=== PATIENT | male | born 1965 | race Two or more races ===

== ENCOUNTER 2017-06-13 20:40 | Inpatient (IN) | payer MEDICARE, MEDICAID ==
[~2017-06-13] VITALS: Ht 177.8 cm; Wt 80.7 kg
--- NOTE | 2017-06-13 21:40 | NUR ---
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 PT C/O BILAT LOWER EXTREMITIES REDNESS/ SWELLING. STATES HIS FEET HURT FROM WALKING ALL DAY. PT AMBULATED TO ER BED, SKIN WARM AND DRY, RR EVEN AND UNLABORED. PT GOWNED,PLACED ON SENIOR ONLINE MARKETING MANAGER. AWAITING ORDERS FROM PROVIDER
[2017-06-13 22:49] LABS: BASOPHILS % (AUTO) 0.5 % (0.0-2.0); EOSINOPHILS # (AUTO) 0.4 /CMM (0.0-0.7); EOSINOPHILS % (AUTO) 5.5 % (0.0-6.0); HEMATOCRIT 41 % (39-51); HEMOGLOBIN 13.6 g/dL (13.5-17.5); LYMPHOCYTES # (AUTO) 1.8 /CMM (0.8-4.8); LYMPHOCYTES % (AUTO) 25.4 % (20.0-44.0); MEAN CORPUSCULAR HEMOGLOBIN 29 PG (26.0-33.0); MEAN CORPUSCULAR HGB CONC 33 g/dl (31.0-36.0); MEAN CORPUSCULAR VOLUME 89 fL (80-96); MONOCYTES # (AUTO) 0.8 /CMM (0.1-1.30); MONOCYTES % (AUTO) 11.6 % (2.0-12.0); NEUTROPHILS # (AUTO) 3.9 /CMM (1.8-8.9); PLATELET COUNT (AUTO) 253 /CMM (150-450); RDW COEFFICIENT OF VARIATION 14.5 (11.5-15.0); RED BLOOD CELL COUNT(AUTO) 4.62 MIL/uL (4.5-6.0); WHITE BLOOD COUNT (AUTO) 6.9 K/uL (4.3-11.0)
[2017-06-13 23:08] LABS: INR 0.9 (0.87-1.13); PROTHROMBIN TIME 9.4 SECS (9.5-12.7)
[2017-06-13 23:11] LABS: TROPONIN I 0.304 ng/mL (0.00-0.056)
[2017-06-13 23:12] LABS: CALCIUM, SERUM 9.1 mg/dL (8.5-10.1)
[2017-06-13 23:23] LABS: ALBUMIN 3.7 g/dL (3.4-5.0); BILIRUBIN,DIRECT 0.1 mg/dL (0.0-0.2); BILIRUBIN,TOTAL 0.5 mg/dL (0.2-1.0)
[2017-06-14] MEDS ORDERED: ASPIRIN 325 MG TABLET PO ONE (01:00)
[2017-06-14] MEDS ORDERED: LORAZEPAM 1 MG TABLET ONE (01:04)
[2017-06-14] MEDS ORDERED: Z GUARD REMEDY 2 OZ OINT TP PRN (01:30)
[2017-06-14] MEDS ORDERED: MAGNESIUM HYDROXIDE 30 ML UDC PO PRN (01:30)
[2017-06-14] MEDS ORDERED: LORAZEPAM 1 MG TABLET PO PRN (01:30)
[2017-06-14] MEDS ORDERED: HYDROCODONE/APAP 5/325MG 1 EACH TABLET PO PRN (01:30)
[2017-06-14] MEDS ORDERED: ACETAMINOPHEN 325 MG TABLET PO PRN (01:30)
[2017-06-14] MEDS ORDERED: MAG HYDROX/AL HYDROX/SIMETH 30 ML UDC PO PRN (01:30)
[2017-06-14] MEDS ORDERED: ONDANSETRON HCL/PF 4 MG/2 ML VIAL IVP PRN (01:30)
[2017-06-14] MEDS ORDERED: ZOLPIDEM TARTRATE 5 MG TABLET PO PRN (01:30)
--- NOTE | 2017-06-14 01:30 | NUR ---
PATIENT CLERICAL ASSISTANT OPENING NOTE PT RECEIVED FROM ER WITH NO ACUTE DISTRESS. A/O X2 WITH SLIGHT CONFUSION/ DEPRESSION. ON TELE WITH SB 60. ABLE TO WALK TO BED WITH SLIGHT PAIN DUE TO BLE CELLULITIS. NO C/O CHEST PAIN. VITALS WNL. ABLE TO MAKE NEEDS KNOWN. COMFORT AND SAFETY MEASURES TO BE ENSURED DURING THE SHIFT. WILL CONTINUE TO MONITOR FOR CHANGES.
--- NOTE | 2017-06-14 01:44 | NUR ---
TRANSPORTED PT TO TELE BED WITHOUT INCIDENT
[2017-06-14] MEDS ORDERED: LORAZEPAM 1 MG TABLET PO ONE (02:30)
--- NOTE | 2017-06-14 03:30 | NUR ---
RN NOTE RECEIVED ORDER FOR ATIVAN 1MG PO X1 NOW. NO ORDER FOR ASA. WILL ENDORSE TO AM NURSE.
[2017-06-14 04:00] VITALS: BP 133/80
[2017-06-14 06:21] LABS: BASOPHILS % (AUTO) 0.5 % (0.0-2.0); EOSINOPHILS # (AUTO) 0.4 /CMM (0.0-0.7); EOSINOPHILS % (AUTO) 6.5 % (0.0-6.0); HEMATOCRIT 36 % (39-51); HEMOGLOBIN 12.2 g/dL (13.5-17.5); LYMPHOCYTES # (AUTO) 1.7 /CMM (0.8-4.8); LYMPHOCYTES % (AUTO) 28.7 % (20.0-44.0); MEAN CORPUSCULAR HEMOGLOBIN 30 PG (26.0-33.0); MEAN CORPUSCULAR HGB CONC 34 g/dl (31.0-36.0); MEAN CORPUSCULAR VOLUME 88 fL (80-96); MONOCYTES # (AUTO) 0.6 /CMM (0.1-1.30); NEUTROPHILS # (AUTO) 3.1 /CMM (1.8-8.9); NEUTROPHILS % (AUTO) 53.3 % (43.0-81.0); PLATELET COUNT (AUTO) 214 /CMM (150-450); RDW COEFFICIENT OF VARIATION 14.2 (11.5-15.0); WHITE BLOOD COUNT (AUTO) 5.8 K/uL (4.3-11.0)
[2017-06-14 06:54] LABS: CALCIUM, SERUM 8.5 mg/dL (8.5-10.1); CREATININE 0.9 mg/dL (0.6-1.3); MAGNESIUM 2.1 mg/dL (1.8-2.4); PHOSPHORUS 4.1 mg/dL (2.5-4.9); POTASSIUM 3.8 mmol/L (3.5-5.1)
--- NOTE | 2017-06-14 06:55 | NUR ---
TITLE I TEACHER CLOSING NOTE PT REMAINS IN NO ACUTE DISTRESS AT THIS TIME, CURRENTLY SLEEPING. ON TELE WITH SR. 20G RAC CLEAN DRY AND INTACT. ALL DUE MEDICATIONS WERE GIVEN AND TOLERATED WELL. COMFORT AND SAFETY MEASURES WERE ENSURED DURING THE SHIFT. WILL ENDORSE CARE TO AM NURSE.
[2017-06-14 08:00] VITALS: BP 128/87
[2017-06-14] MEDS ORDERED: REGADENOSON 0.4 MG/5 ML DISP.SYRIN IVP ONE (08:00)
--- NOTE | 2017-06-14 08:05 | NUR ---
MS RN RECEIVED PT ON BED, STILL SLEEPING, NO DISTRESS NOTED, MONITOR HAS BEEN OFF, DOES NOT WANT TO BE BOTHER,WILL MONITOR PATIENT.
[2017-06-14 08:32] LABS: THYROID STIMULATING HORMONE 1.672 uIU/mL (0.358-3.74)
--- NOTE | 2017-06-14 10:00 | NUR ---
MS RN ECHO DONE, NPO AT THIS TIME FOR STRESS TEST.
[2017-06-14] MEDS ORDERED: GABA-534 PO (11:16)
[2017-06-14] MEDS ORDERED: ASCO500T9 PO (11:16)
[2017-06-14] MEDS ORDERED: BUPR100T5 PO (11:16)
[2017-06-14] MEDS ORDERED: OMEP20CA10 PO (11:16)
[2017-06-14] MEDS ORDERED: OMEG100023 PO (11:16)
[2017-06-14] MEDS ORDERED: MULT1TAB73 PO (11:16)
--- NOTE | 2017-06-14 11:30 | NUR ---
MS RN WENT DOWN FOR STRESS TEST, CALLED [employer] FOR DIET TO BE DELIVERED.
[2017-06-14 12:00] VITALS: BP 121/84
--- NOTE | 2017-06-14 12:10 | NUR ---
Social service consult requested by ONDINA Hooper for homelessness. Pt. is a 51 year old male who was admitted to [facility] for NStemi. Pt. is alert and oriented x4. Pt. appears somewhat anxious, laughs at times, cooperative and has good eye contact. Pt's thought process seems goal oriented. Pt. informed SW that he would like for her to call his friend Alba Red on his behalf and request the phone number for the [employer] in [place]. BROCK informed pt, she can try to find the number online for him, however pt. insisted requesting for SW to contact his friend. SW contacted Alba and left her a voicemail message requesting a call back with contact information to [employer] in [place]. Pt. used to attend the [facility] Partial Hospitalization Program in 2009. Pt. has a history of Bipolar disorder and Major Depression. Pt. has had several psychiatric hospitalizations in the past with the most recent one at [facility]. Pt. use to live in [place] with his mother, however after his mother , pt. was evicted from the apartment and has been homeless for the past. Pt. doesn't give an accurate information regarding how long he has been homeless. When asked, pt. states a week or 2 months. Pt. currently denies suicidal and homicidal ideations and visual/auditory hallucinations at this time. Pt. states he used to use speed but has not done it in a while. Pt. is a smoker. SW to follow up with pt. tomorrow regarding his discharge plan.
--- NOTE | 2017-06-14 12:55 | NUR ---
ms rn came back from stress test, will give lunch and meds after.
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
[2017-06-14 16:00] VITALS: BP 128/81
[2017-06-14] MEDS: ATORVASTATIN 10 MG TABLET PO SCH (16:14)
[2017-06-14] MEDS: ASPIRIN 81 MG TAB.CHEW PO SCH (16:15)
[2017-06-14] MEDS: CARVEDILOL 3.125 MG TABLET PO SCH ×2 (16:15→20:52)
--- NOTE | 2017-06-14 16:30 | NUR ---
MS RN WAS ABLE TO TALKED W/ DR. MADSEN, PROMISED TO RECONCILE PATIENT'S HOME MEDS.
--- NOTE | 2017-06-14 18:04 | NUR ---
MS RN PATIENT ON BED, NO DISTRESS NOTED, ALWAYS ON THE PHONE, REFUSED TELEMETRY,ALL NEEDS ATTENDED.
[2017-06-14 20:00] VITALS: BP 128/73
--- NOTE | 2017-06-14 20:00 | NUR ---
MS/RN OPENING NOTES PATIENT AWAKE, ALERT X3, ABLE TO AMBULATE AND PROVIDED INSTRUCTION TO INFORM NURSE FOR ANY CONCERNS AND REPORT IF HE NEEDS TO GO OUT IN THE ROOM OR NEED ANY ASSISTANCE. PATIENT COOPERATIVE AND PROVIDED HOME MED GABAPENTIN TO GIVE TO PHARMACY TO KEEP. AGREED TO HAVE GABAPENTIN FOR KATELYN AM AND REQUEST TO HAVE SLEEPING PILL AT BED TIME. PROVIDE FLUIDS AND SNACKS. WILL CONTINUE TO MONITOR. NO PAIN REPORTED.
--- NOTE | 2017-06-14 23:05 | NUR ---
ms/rn notes DR. vidal was informed regarding home medication of patient Gabapentin 300mg po to take 2 caps at bed time and order to continue.
[2017-06-14] MEDS ORDERED: GABAPENTIN 300 MG CAPSULE ONE ×2 (23:26→23:29)
[2017-06-14] MEDS ORDERED: GABAPENTIN 300 MG CAPSULE PO SCH ×2 (23:30)
[2017-06-15] VITALS: BP 128/73
[2017-06-15 04:00] VITALS: BP 128/73
--- NOTE | 2017-06-15 05:10 | NUR ---
MS/RN NOTES PATIENT REQUIRING MONITORING AT ALL TIMES, PROVIDED INSTRUCTIONS FOR SAFETY TO KEEP PETROLEUM BLENDING PLANT OPERATOR AND PERSONAL SCISSORS AWAY FROM BEDSIDE. REINFORCE AND MONITORED
--- NOTE | 2017-06-15 05:55 | NUR ---
MS/RN NOTES PATIENT ABLE TO COOPERATE AND HAD TELE MONITOR ON W/ READING AT SR 80'S.
--- NOTE | 2017-06-15 06:33 | NUR ---
326-2 TELE/RN NOTES PATIENT REFUSE TO HAVE TELE , AMBULATES AND INDEPENDENT W/ ADLS REQUIRE SUPERVISION DUE FOR SAFETY. TOLERATED MEDS, SLEEP FEW HOURS. WILL ENDORSE TO AM RN FOR SIMONE.
[2017-06-15 06:53] LABS: BASOPHILS % (AUTO) 0.3 % (0.0-2.0); EOSINOPHILS # (AUTO) 0.4 /CMM (0.0-0.7); EOSINOPHILS % (AUTO) 5.5 % (0.0-6.0); HEMATOCRIT 40 % (39-51); HEMOGLOBIN 13.2 g/dL (13.5-17.5); LYMPHOCYTES # (AUTO) 1.7 /CMM (0.8-4.8); LYMPHOCYTES % (AUTO) 24.4 % (20.0-44.0); MEAN CORPUSCULAR HEMOGLOBIN 30 PG (26.0-33.0); MEAN CORPUSCULAR HGB CONC 33 g/dl (31.0-36.0); MEAN CORPUSCULAR VOLUME 90 fL (80-96); MONOCYTES # (AUTO) 0.7 /CMM (0.1-1.30); MONOCYTES % (AUTO) 9.9 % (2.0-12.0); NEUTROPHILS # (AUTO) 4.1 /CMM (1.8-8.9); NEUTROPHILS % (AUTO) 59.9 % (43.0-81.0); PLATELET COUNT (AUTO) 242 /CMM (150-450); RDW COEFFICIENT OF VARIATION 14.1 (11.5-15.0); RED BLOOD CELL COUNT(AUTO) 4.39 MIL/uL (4.5-6.0); WHITE BLOOD COUNT (AUTO) 6.8 K/uL (4.3-11.0)
[2017-06-15 07:18] LABS: BILIRUBIN,TOTAL 0.3 mg/dL (0.2-1.0); CALCIUM, SERUM 8.7 mg/dL (8.5-10.1); CREATININE 0.8 mg/dL (0.6-1.3); MAGNESIUM 2.2 mg/dL (1.8-2.4); PHOSPHORUS 2.9 mg/dL (2.5-4.9)
[2017-06-15 07:19] LABS: TROPONIN I 0.046 ng/mL (0.00-0.056)
--- NOTE | 2017-06-15 07:40 | NUR ---
MS RN NOTE RECEIVED SBAR REPORT AT THE BEDSIDE. PATIENT IS ALERT, ORIENTED X 4, AWAKE. PATIENT IS TRANSFERRED TO MED/SURG FROM [facility]. PATIENT IS WEARING STREET CLOTHES AND REFUSES TO WEAR A HOSPITAL GOWN. PATIENT IN BED, SPEAKING ON THE PHONE. BED IS LOCKED, IN LOWEST POSITION, SIDE RAILS UP X2. PATIENT DENIED PAIN/ DISCOMFORT AT THIS TIME. TROPONIN LEVEL TRENDING DOWN (0.046 CURRENTLY). ALL NEEDS ARE ATTENDED TO. ALL BELONGINGS WITHIN REACH. CALL LIGHT WITHIN REACH. PATIENT IS EDUCATED TO CALL FOR ASSISTANCE USING THE CALL LIGHT AND VERBALIZED UNDERSTANDING OF THE TEACHING. PER [facility] SHIFT NURSE REPORT PATIENT HAS A TENDENCY TO GO OUT OF THE UNIT WITHOUT NOTIFYING THE NURSE TO SMOKE CIGARETTES DOWNSTAIRS. PATIENT EDUCATED NOT TO LEAVE THE UNIT, TO REFER TO THE NURSE FOR ANY CONCERNS/NEEDS. NICOTINE PATCHES OFFERED AND REFUSED. RN EDUCATED THE PATIENT ON SMOKING HAZARDS. WILL CONTINUE TO ASSESS MONITOR THROUGHOUT THE SHIFT.
[2017-06-15 08:00] VITALS: BP_SYST 128; BP_DIAS 80; BP_DIAS 86
[2017-06-15] MEDS: ASPIRIN 81 MG TAB.CHEW PO SCH (09:02)
[2017-06-15] MEDS: ATORVASTATIN 10 MG TABLET PO SCH (09:02)
[2017-06-15 09:03] VITALS: BP 128/80
[2017-06-15] MEDS: CARVEDILOL 3.125 MG TABLET PO SCH (09:03)
[2017-06-15] MEDS ORDERED: GABAPENTIN 100 MG CAPSULE PO SCH (11:00)
--- NOTE | 2017-06-15 11:30 | NUR ---
MS RN NOTE PATIENT IS VERY AGITATED. SCREAMING AT THE MONKEY KEEPER. CRISIS INTERVENTION INITIATED.
--- NOTE | 2017-06-15 11:40 | NUR ---
MS RN NOTE DR MADSEN AT THE BEDSIDE. PER DR MADSEN ORDER WELLBUTRIN SR 100MG ONCE NOW.
--- NOTE | 2017-06-15 11:50 | NUR ---
MS RN NOTE PATIENT WAS TALKING ON THE PHONE AND STATED HE WILL TAKE HIS MEDICATIONS AFTER HE IS DONE TALKING. WILL RETURN TO ADMINISTER MEDICATIONS LATER
[2017-06-15] MEDS ORDERED: buPROPion SR 100 MG TABLET.ER PO ONE (12:00)
--- NOTE | 2017-06-15 12:11 | NUR ---
BROCK met with pt. bedside with immigration case manager to discuss discharge planning. Pt. informed SW that he wants to go to a sober living and not to a board and care. BROCK called [facility] located at [address] [place] [address] in [place] and spoke to Jeovany, who informed SW they do have a male bed available for $940/ month, however since pt. can only afford $940 a month, he is willing to reduce the rent to $ 926/ month which is the SSDI amount pt. receives per month. SW gave pt. list of sober livings and gave informed him that he is accepted at [facility] in [place]. Pt. declined stating " I do not want to go there." Pt. became agitated and his behaviors escalated again. SW attempted to calm pt. Security had to be called for safety concerns. SW to offer pt. bus tokens upon discharge and address to sober living incase he changes his mind. BROCK contacted pt's therapist Theodore Retana at [facility] x [phone] and left her a voicemail message requesting a call back. BROCK also spoke with pt's immigration case manager Mariajose Belcher at [facility] x [phone] who informed SW that she had spoken with the pt. yesterday and gave him a list of sober livings and that pt. declined all of them. BROCK also informed Mariajose that she found an accepting sober living for pt. in [place], however pt. declined. BROCK also gave pt. list of sober livings. Mariajose informed BROCK that she gave him another list of sober livings today. SW to inform Mariajose when pt. is going to be discharged later this afternoon. BROCK contacted pt's sister Jesenia and spoke to her Gal and informed him that pt. was seen by psychiatrist Dr. Estes and was found not eligible for a 5150 hold. Pt. will be discharged today. Gal was not very happy regarding pt. not being admitted into a psychiatric unit. BROCK encouraged him to speak with pt's therapist Theodore Retana at [facility] for possible conserving patient. BROCK informed Gal that SW offered sober living placement to pt. however, he declined. BROCK transferred call to ONDINA Hooper since Gal wanting update on pt's medical condition. SW to update family once pt. leaves the hospital.
[2017-06-15] MEDS ORDERED: RIVA10TA PO (13:02)
--- NOTE | 2017-06-15 13:45 | NUR ---
MS RN NOTE PATIENT IS AGITATED, PACING AROUND THE ROOM. PATIENT STATED "I AM NOT GOING TO GO TO ANY OF THE PLACES THAT THE HAIRSPRING STUDDER FOUND".
--- NOTE | 2017-06-15 13:55 | NUR ---
MS RN NOTE PATIENT USED THE CALL LIGHT IN THE BATHROOM. RN RESPONDED TO THE CALL. PATIENT WAS FOUND URINATING ON THE FLOOR. PATIENT STATED HE DID NOT NEED ANY ASSISTANCE. RN ASKED WHY WAS THE PATIENT URINATION ON THE FLOOR. PATIENT STATED "JUST BECAUSE".
--- NOTE | 2017-06-15 14:05 | NUR ---
MS RN NOTE AUTOMOBILE DAMAGE APPRAISER RENNY AT THE BEDSIDE. PATIENT REFUSED SEVERAL OPTIONS FOR PLACEMENT BEING OFFERED BY THE AUTOMOBILE DAMAGE APPRAISER.
--- NOTE | 2017-06-15 15:01 | NUR ---
MS MICROELECTRONICS TECHNICIAN NOTE PATIENT LEFT THE UNIT ACCOMPANIED BY THE MICHELLE CHRISTY. DISCHARGE INSTRUCTIONS PROVIDED TO PATIENT./ DISCHARGE ORDER FOR XARELTO SENT TO THE PHARMACY AND PATIENT IS NOTIFIED/PROVIDED WITH ADDRESS/CONTACT INFORMATION OF THE PHARMACY. PATIENT REFUSED DISCHARGE PICTURES TO BE TAKEN. IV CATHETER REMOVED WITH THE CATHETER TIP INTACT. OCCLUSIVE DRESSING APPLIED. PATIENT LEFT THE UNIT IS A STABLE CONDITION. VS WNL.
--- NOTE | 2017-06-15 15:04 | NUR ---
BROCK alongside with [facility] security officers gave pt. 3 bus tokens and list of homeless resources since pt. declined going to sober living resources that were offered to him by BROCK and his bottle caser from [facility]. Pt. accepted the bus tokens and homeless resources that included homeless shelters, Food resources, mental health services and medical centers and health clinics. Pt. was asking for money, however BROCK informed pt. the hospital policy is that no monetary amount is allowed to give to patients. Pt. was escorted out of the hospital by [facility] since pt. has been medically cleared for discharge. BROCK contacted pt's sister Jesenia and left her a voicemail message informing her that pt. has been discharged from [facility] and pt. refused all resources for sober living that were offered to him.
[2017-06-15] MEDS ORDERED: RIVAROXABAN 10 MG TABLET PO SCH (17:00)
== END 2017-06-15 15:04 | disposition home or self-care (01) | DRG 281 ==
LOC: ER 20:40 → TELE 06-14 00:48 → MED 06-15 08:44
PROVIDERS: ADMIT Family Medicine; ATTEND Family Medicine
DX: I21.4 Non-ST elevation (NSTEMI) myocardial infarction (principal); F31.81 Bipolar II disorder; G62.9 Polyneuropathy, unspecified; E78.5 Hyperlipidemia, unspecified; Z59.0 Homelessness; F17.210 Nicotine dependence, cigarettes, uncomplicated; F19.90 Other psychoactive substance use, unspecified, uncomplicated; I87.8 Other specified disorders of veins; F42.9 Obsessive-compulsive disorder, unspecified
CPT/HCPCS: 36415; 71010-TC; 80048-TC; 80053-TC; 80061-TC; 80076-TC; 80305; 82306; 82728-TC; 83540-TC; 83735-TC; 83880; 84100-TC; 84439-TC; 84443-TC; 84484-TC; 85025-TC; 85730-TC; 87081-TC; 93307-TC; 93970-TC; A4606; A9502; J2785; Z7610

== ENCOUNTER 2017-07-31 13:25 | Inpatient (IN) | payer MEDICARE, MEDICAID ==
[~2017-07-31] VITALS: Ht 182.9 cm; Wt 69.9 kg
[~2017-07-31 13:25] MED LIST: ASCO500T9 PO; BUPR100T5 PO; GABA-534 PO; MULT1TAB73 PO; OMEG-166 PO; OMEP20CA10 PO; RIVA10TA PO
--- NOTE | 2017-07-31 13:53 | NUR ---
A/OX3, AMBULATOPRY TO ED BED 03, PT CAME TO ER W C/O SI WITH PLAN TO RUN INTO TRAFFIC, DENIES HI. VSS NAD RR EVEN AND UNLABORED. PENDING ER MD EVALUATION
[2017-07-31 15:52] LABS: BASOPHILS # (AUTO) 0.1 /CMM (0.0-0.2); EOSINOPHILS # (AUTO) 0.1 /CMM (0.0-0.7); EOSINOPHILS % (AUTO) 1.2 % (0.0-6.0); HEMATOCRIT 42 % (39-51); HEMOGLOBIN 14.2 g/dL (13.5-17.5); LYMPHOCYTES # (AUTO) 2.4 /CMM (0.8-4.8); LYMPHOCYTES % (AUTO) 26.7 % (20.0-44.0); MEAN CORPUSCULAR HEMOGLOBIN 29 PG (26.0-33.0); MEAN CORPUSCULAR HGB CONC 34 g/dl (31.0-36.0); MEAN CORPUSCULAR VOLUME 88 fL (80-96); MONOCYTES # (AUTO) 0.5 /CMM (0.1-1.30); MONOCYTES % (AUTO) 5.8 % (2.0-12.0); NEUTROPHILS # (AUTO) 5.9 /CMM (1.8-8.9); NEUTROPHILS % (AUTO) 65.3 % (43.0-81.0); PLATELET COUNT (AUTO) 220 /CMM (150-450); RDW COEFFICIENT OF VARIATION 13.3 (11.5-15.0); RED BLOOD CELL COUNT(AUTO) 4.82 MIL/uL (4.5-6.0)
[2017-07-31 16:01] LABS: CALCIUM, SERUM 8.9 mg/dL (8.5-10.1); CARBON DIOXIDE 31 mmol/L (21-32); CHLORIDE 107 mmol/L (98-107); GLUCOSE 96 mg/dL (74-106); POTASSIUM 3.9 mmol/L (3.5-5.1); SODIUM SERUM 144 mmol/L (136-145); UREA NITROGEN, BLOOD 11 mg/dL (7-18)
[2017-07-31 16:07] LABS: ACETAMINOPHEN 0 ug/ml (10-30); ALANINE AMINOTRANSFERASE 16 U/L (12-78); ALBUMIN 3.6 g/dL (3.4-5.0); ALCOHOL, BLOOD < 3 mg/dL (0-0); ALKALINE PHOSPHATASE 68 U/L (46-116); ASPARTATE AMINOTRANSFERASE 13 U/L (15-37); BILIRUBIN,TOTAL 0.2 mg/dL (0.2-1.0); TOTAL PROTEIN, SERUM 6.6 g/dL (6.4-8.2)
[2017-07-31 16:09] LABS: SALICYLATE 2.4 mg/dL (2.8-20.0)
[2017-07-31 16:10] LABS: APPEARANCE,URINE Clear (CLEAR); BILIRUBIN,URINE Negative (NEGATIVE); BLOOD, URINE Negative Ery/uL (NEGATIVE); COLOR,URINE Yellow (YELLOW); KETONES,URINE Negative (NEGATIVE); LEUKOCYTE ESTERASE ,URINE Negative (NEGATIVE); NITRITE, URINE Negative (NEGATIVE); PH,URINE 7.5 (5.0-8.0); PROTEIN,URINE Negative (NEGATIVE); UGLUCOSE Negative (NEGATIVE); UROBILINOGEN,URINE 0.2 EU/dL (0.2)
--- NOTE | 2017-07-31 17:22 | NUR ---
CALLED [facility] FOR PSYCH EVAL ETA 1 HOUR
--- NOTE | 2017-07-31 18:11 | NUR ---
[facility] AT BEDSIDE FOR EVAL
--- NOTE | 2017-07-31 18:45 | NUR ---
GAVE REPORT TO DARRIN MADSEN ADMITING. PSYCHMD DR TONEY. PSYCHIATRIC DISORDER DX
[2017-07-31] MEDS ORDERED: MAGNESIUM HYDROXIDE 30 ML UDC PO PRN (20:30)
[2017-07-31] MEDS ORDERED: MAG HYDROX/AL HYDROX/SIMETH 30 ML UDC PO PRN (20:30)
[2017-07-31 20:40] VITALS: BP 134/84
--- NOTE | 2017-07-31 21:00 | NUR ---
GPS PROBATION MANAGER NOTES: ADMITTED A 52YO MALE FROM EMERGENCY ROOM ON 5150 HOLD FOR DANGER TO SELF, WITH COMPLAINS OF DEPRESSION AND SUICIDAL IDEATION WITH A PLAN TO JUMP INTO TRAFFIC. PER HOLD THE PATIENT IS FEELING DEPRESSED, NON COMPLIANT WITH MEDICATION, PATIENT WAS PRESCRIBED LATUDA BUT NEVER STARTED THE MEDICATION. USHERED PATIENT TO BED. UPON FACE TO FACE ASSESSMENT, PATIENT PRESENTS ALERT AND ORIENTED X2-3. APPEARS QUIET, SAD, TEARFUL AND DEPRESSED. PATIENT ONLY TALKS AND INTERACTS WHEN ENGAGED. REALITY ORIENTATION DONE. BELONGINGS AND CONTRABAND CHECKED. SKIN AND BODY ASSESSMENT DONE. PATIENT HAS NO OPEN SKIN ISSUES OR WOUND THIS TIME. ORIENTATION TO UNIT, STAFF, CARE PLAN AND DOCTORS DONE. PATIENT WILL BE UNDER THE CARE OF DR. TONEY AND [facility] OF DOCTORS. PATIENT IS AMBULATORY. ABLE TO MAKE NEEDS KNOW. HE DENIES ANY HALLUCINATION THIS TIME. HE IS DENYING ANY THOUGHTS OR PLANS OF SELF HARM THIS TIME. HE IS WILLING TO CONTRACT FOR SAFETY. Q15 MIN CHECK INITIATED.MRSA TO BE DONE IN THE MORNING. SAFETY AND FALL PRECAUTIONS OBSERVED. ENVIRONMENTAL SAFETY CHECK DONE. WILL MONITOR PATIENT FOR MOOD, SAFETY IN BEHAVIOR. WILL ENDORSE PATIENT TO DAY SHIFT NURSE.
[2017-07-31] MEDS: TEMAZEPAM 7.5 MG CAPSULE PO PRN (22:11)
[2017-07-31] MEDS ORDERED: LURA40TA PO (22:49)
[2017-07-31] MEDS ORDERED: OMEG-72 PO (22:49)
[2017-07-31] MEDS ORDERED: BUPR75TA8 PO (22:49)
[2017-08-01] MEDS: clonazePAM 0.5 MG TABLET PO PRN ×2 (03:51→13:09)
[2017-08-01 08:00] VITALS: BP 121/69
[2017-08-01 08:17] LABS: CHOLESTEROL 207 mg/dL (<200); HDL CHOLESTEROL 60 mg/dL (40-60); LDL 135 mg/dL (0-99); TRIGLYCERIDES 77 mg/dL (30-150)
[2017-08-01] MEDS ORDERED: OMEGA ACID ETHYL ESTERS PO SCH (13:30)
[2017-08-01] MEDS ORDERED: BUPROPION XL 150 MG TAB.ER.24 PO SCH (15:30)
[2017-08-01 16:09] VITALS: BP 128/79
[2017-08-01] MEDS ORDERED: QUETIAPINE FUMARATE 25 MG TABLET PO SCH (17:00)
[2017-08-01 19:54] VITALS: BP 133/72
[2017-08-01] MEDS: TEMAZEPAM 7.5 MG CAPSULE PO PRN (23:02)
--- NOTE | 2017-08-02 06:26 | NUR ---
GPS RN NOTES PT. COMFORTABLY RESTING AT THIS TIME, NO ACUTE DISTRESS NOTED, DENIES SI /HI AT THIS TIME PT. CALM COOPERATIVE,ENDORSE TO NEXT SHIFT FOR CONTINUTY OF CARE .
[2017-08-02 08:00] VITALS: BP 119/63
[2017-08-02] MEDS: GABAPENTIN 300 MG CAPSULE PO SCH (09:13)
[2017-08-02] MEDS: PANTOPRAZOLE 40 MG TABLET.DR PO SCH (09:13)
[2017-08-02] MEDS: ASCORBIC ACID 500 MG TABLET PO SCH (09:13)
[2017-08-02] MEDS: ACETAMINOPHEN 325 MG TABLET PO PRN (12:12)
[2017-08-02] MEDS: clonazePAM 0.5 MG TABLET PO PRN (15:15)
--- NOTE | 2017-08-02 15:16 | NUR ---
GPS RN NOTE: PATIENT FEELING ANXIOUS KLONOPIN 0.5 MG PO PRN GIVE PER ORDER WILL CONTINUE MONITORING
[2017-08-02 16:00] VITALS: BP 121/64
[2017-08-02] MEDS: BUPROPION XL 150 MG TAB.ER.24 PO SCH (17:51)
[2017-08-02 20:00] VITALS: BP 110/60
[2017-08-02] MEDS: OLANZAPINE 5 MG TABLET PO SCH (21:25)
[2017-08-03] MEDS: ASCORBIC ACID 500 MG TABLET PO SCH (08:18)
[2017-08-03] MEDS: GABAPENTIN 300 MG CAPSULE PO SCH (08:18)
[2017-08-03] MEDS: PANTOPRAZOLE 40 MG TABLET.DR PO SCH (08:18)
[2017-08-03] MEDS: BUPROPION XL 150 MG TAB.ER.24 PO SCH (08:18)
[2017-08-03 08:31] VITALS: BP 113/56
--- NOTE | 2017-08-03 08:42 | NUR ---
Initial Discharge Note Patient currently lives in sober living, [address] [place] [address]. Patient does not wish to continue there. If possible, patient would like placement at a SNF before transitioning into a board and care. Patient states that he would like SW to call his case finishing machine adjuster, Lisa [phone] to check if his Section 8 voucher might be affected by placement in a SNF. SW to follow up. BROCK contacted pt's sister, Jesenia Arreaga [phone], who was in a agreement with patient's plan. SW to consult with MD and form a safe and proper discharge.
--- NOTE | 2017-08-03 12:18 | NUR ---
Discharge Planning: SW called pt's case management director, Lisa Belcher [phone] and left a voicemail for her regarding the section 8 voucher. SW provided her direct contact information.
--- NOTE | 2017-08-03 14:10 | NUR ---
Discharge Planning: SW spoke with pt's returned case inspector Lisa Belcher [phone] who stated that placement at a SNF or board and care should not have any impact on patient's extension of his section 8 voucher. SW made patient aware of this.
[2017-08-03 15:28] VITALS: BP 110/69
--- NOTE | 2017-08-03 16:06 | NUR ---
Discharge Planning: BROCK faxed inquiry to November in Admissions at [facility] [address] [facility] / fax number [phone]. SW to follow up.
[2017-08-03] MEDS: clonazePAM 0.5 MG TABLET PO PRN (16:11)
--- NOTE | 2017-08-03 16:20 | NUR ---
GPS RN NOTE: PATIENT FEELING ANXIOUS KLONOPIN 0.5 MG PO PRN GIVE PER ORDER WILL CONTINUE MONITORING
--- NOTE | 2017-08-03 16:22 | NUR ---
Discharge Planning: BROCK faxed inquiry to [facility] [address] [place] [address] / fax number [phone]
--- NOTE | 2017-08-03 19:33 | NUR ---
GPS/RN NOTE: PATIENT RECEIVED AT THE DINING AREA WITH OTHER PATIENTS. AWAKE, ALERT, ORIENTED X3. SHOWS NO S/S OF ANY DISTRESS. RESPONDS WELL WHEN ENGAGED.
[2017-08-03 20:00] VITALS: BP 108/58
[2017-08-03] MEDS: OLANZAPINE 5 MG TABLET PO SCH (21:40)
[2017-08-03] MEDS: ACETAMINOPHEN 325 MG TABLET PO PRN (21:40)
--- NOTE | 2017-08-03 21:40 | NUR ---
GPS/RN NOTE: C/O ABDOMINAL PAIN, TYLENOL 650 MG PO GIVEN.
[2017-08-04] MEDS: clonazePAM 0.5 MG TABLET PO PRN ×2 (02:46→09:03)
--- NOTE | 2017-08-04 02:47 | NUR ---
GPS/RN NOTE: PATIENT FEELING ANXIOUS, KLONOPIN 0.5 MG PO GIVEN.
[2017-08-04] MEDS: ACETAMINOPHEN 325 MG TABLET PO PRN (04:22)
--- NOTE | 2017-08-04 04:23 | NUR ---
GPS/RN NOTE: C/O GENERALIZED BODY PAIN, TYLENOL 650 MG PO GIVEN.
[2017-08-04 08:00] VITALS: BP 129/73
[2017-08-04] MEDS: PANTOPRAZOLE 40 MG TABLET.DR PO SCH (08:25)
[2017-08-04] MEDS: BUPROPION XL 150 MG TAB.ER.24 PO SCH (09:03)
[2017-08-04] MEDS: ASCORBIC ACID 500 MG TABLET PO SCH (09:03)
[2017-08-04] MEDS: GABAPENTIN 300 MG CAPSULE PO SCH (09:03)
--- NOTE | 2017-08-04 09:59 | NUR ---
Discharge planning: BROCK heard back from Jacinda in admissions from [address] [address] / fax number [phone] who stated that the patient was too young to be placed at the facility.
--- NOTE | 2017-08-04 09:59 | NUR ---
Discharge Planning: BROCK faxed an inquiry to [facility] [address] [place] [address] / fax number [phone]
--- NOTE | 2017-08-04 10:01 | NUR ---
Discharge Planning: BROCK contacted Efraín [phone], who is affiliated with several board and cares / independent living facilities. BROCK provided some information about the patient, such as income, skilled needs and insurance. Efraín stated that he will reach out to several owners of board and cares / independent living and will contact BROCK in the afternoon. SW to follow up with Efraín.
--- NOTE | 2017-08-04 13:12 | NUR ---
ASSUMED SERVICE, RECEIVED PT. AWAKE IN BED, QUIET, NO DISTRESS AND NO AGITATION NOTED. WILL CONTINUE TO MONITOR FOR SAFETY.
[2017-08-04 16:00] VITALS: BP 121/63
[2017-08-04 20:00] VITALS: BP 114/73
[2017-08-04] MEDS: TEMAZEPAM 7.5 MG CAPSULE PO PRN (21:55)
[2017-08-04] MEDS: OLANZAPINE 5 MG TABLET PO SCH (21:55)
[2017-08-05 08:00] VITALS: BP 117/67
[2017-08-05] MEDS: ASCORBIC ACID 500 MG TABLET PO SCH (08:03)
[2017-08-05] MEDS: BUPROPION XL 150 MG TAB.ER.24 PO SCH (08:03)
[2017-08-05] MEDS: PANTOPRAZOLE 40 MG TABLET.DR PO SCH (08:03)
[2017-08-05] MEDS: ACETAMINOPHEN 325 MG TABLET PO PRN (08:03)
[2017-08-05] MEDS: clonazePAM 0.5 MG TABLET PO PRN (12:44)
[2017-08-05 16:00] VITALS: BP 117/71
[2017-08-05 20:00] VITALS: BP 112/72
[2017-08-05] MEDS: GABAPENTIN 300 MG CAPSULE PO SCH (21:41)
[2017-08-05] MEDS: OLANZAPINE 5 MG TABLET PO SCH (21:41)
[2017-08-05] MEDS: TEMAZEPAM 7.5 MG CAPSULE PO PRN (22:02)
[2017-08-06 08:00] VITALS: BP 100/45
[2017-08-06] MEDS: PANTOPRAZOLE 40 MG TABLET.DR PO SCH (08:54)
[2017-08-06] MEDS: BUPROPION XL 150 MG TAB.ER.24 PO SCH (08:54)
[2017-08-06] MEDS: ASCORBIC ACID 500 MG TABLET PO SCH (08:54)
[2017-08-06] MEDS: clonazePAM 0.5 MG TABLET PO PRN (12:35)
[2017-08-06 15:56] VITALS: BP 125/78
[2017-08-06 20:05] VITALS: BP 107/67
[2017-08-06] MEDS: OLANZAPINE 5 MG TABLET PO SCH (21:14)
[2017-08-06] MEDS: GABAPENTIN 300 MG CAPSULE PO SCH (21:14)
[2017-08-06] MEDS: TEMAZEPAM 7.5 MG CAPSULE PO PRN (21:14)
[2017-08-07 08:20] VITALS: BP 110/71
[2017-08-07] MEDS: PANTOPRAZOLE 40 MG TABLET.DR PO SCH (08:39)
[2017-08-07] MEDS: BUPROPION XL 150 MG TAB.ER.24 PO SCH (08:39)
[2017-08-07] MEDS: ASCORBIC ACID 500 MG TABLET PO SCH (08:39)
--- NOTE | 2017-08-07 10:27 | NUR ---
BROCK assisted patient in contacting the [facility], . Patient has a court hearing scheduled tomorrow morning and was worried about not being able to attend. Patient was informed by chris that patient needs to call tomorrow at 8:30am to inform the reconciling clerk about his absence. BROCK provided all of the contact information to the patient.
--- NOTE | 2017-08-07 10:45 | NUR ---
Discharge Planning: BROCK spoke with Niya, insurance agency owner of an independent living located at [address] [place] [phone], . Niya stated that everything is all worked out regarding patient's placement and informed BROCK that patient's sister, Jesenia Arreaga [phone] visited the independent living. Niya stated that she does not need anything faxed over but that she needs the patient to come in with a facesheet and have rent money ready. BROCK stated that patient's sister, Jesenia, is the payee and that she will follow up with her.
--- NOTE | 2017-08-07 11:12 | NUR ---
Discharge Planning: BROCK spoke with pt's sister, Jesenia Arreaga [phone], and discussed patient's discharge plan. Jesenia stated that she and her will cover the cost of the independent living facility and will make sure that the risk assessment consultant, Niya, has the required rent money.
[2017-08-07] MEDS: clonazePAM 0.5 MG TABLET PO PRN (12:57)
[2017-08-07 15:55] VITALS: BP 114/62
[2017-08-07 19:44] VITALS: BP 120/66
[2017-08-07] MEDS: GABAPENTIN 300 MG CAPSULE PO SCH (21:30)
[2017-08-07] MEDS: OLANZAPINE 5 MG TABLET PO SCH (21:30)
[2017-08-07] MEDS: TEMAZEPAM 7.5 MG CAPSULE PO PRN (21:31)
[2017-08-08 08:13] VITALS: BP 106/67
[2017-08-08] MEDS: BUPROPION XL 150 MG TAB.ER.24 PO SCH (09:10)
[2017-08-08] MEDS: ASCORBIC ACID 500 MG TABLET PO SCH (09:10)
[2017-08-08] MEDS: PANTOPRAZOLE 40 MG TABLET.DR PO SCH (09:10)
--- NOTE | 2017-08-08 09:15 | NUR ---
SW assisted patient in contacting the [facility], regarding a hearing scheduled for patient today. BROCK spoke with clerk Whitmore who referred SW to accountant certified public Trisha Alanis, . BROCK called Trisha and left a voicemail asking her to call BROCK back. BROCK provided direct contact information on the voicemail.
[2017-08-08] MEDS: clonazePAM 0.5 MG TABLET PO PRN (12:39)
--- NOTE | 2017-08-08 14:58 | NUR ---
Discharge Planning: BROCK informed Niya, agricultural chemist of an independent living located at [address] [place] [phone], that patient will be discharged on . Niya stated that it was fine and reminded BROCK to provide patient with the facesheet. BROCK stated that she will. BROCK will also fax a home health order for patient to [facility] [phone] / fax #[phone]. BROCK also contacted patient's sister, Jesenia Arreaga [phone] and informed her that patient will be discharged on .
[2017-08-08 15:50] VITALS: BP 114/74
[2017-08-08 20:58] VITALS: BP 100/58
[2017-08-08] MEDS: GABAPENTIN 300 MG CAPSULE PO SCH (21:31)
[2017-08-08] MEDS: OLANZAPINE 5 MG TABLET PO SCH (21:31)
[2017-08-08] MEDS: TEMAZEPAM 7.5 MG CAPSULE PO PRN (21:33)
[2017-08-09 08:00] VITALS: BP 109/65
[2017-08-09] MEDS: ASCORBIC ACID 500 MG TABLET PO SCH (08:09)
[2017-08-09] MEDS: PANTOPRAZOLE 40 MG TABLET.DR PO SCH (08:09)
[2017-08-09] MEDS: BUPROPION XL 150 MG TAB.ER.24 PO SCH (08:09)
[2017-08-09] MEDS: ACETAMINOPHEN 325 MG TABLET PO PRN ×2 (11:50→18:50)
--- NOTE | 2017-08-09 11:50 | NUR ---
[id number]: GAVE TYLENOL 650 MG PO DUE TO GENERALIZED PAIN 5/10 UPON PT REQUEST AND WILL CONTINUE TO MONITOR FOR EFFECTIVENESS OF MEDICATION
--- NOTE | 2017-08-09 15:46 | NUR ---
Group Note: S: Patient asked, "What is an independent living?" "What can I expect?" Patient stated he was glad to be leaving tomorrow. Patient stated that he wanted to know the difference between a board and care and an independent living. Patient stated that he would like follow up appointments with his therapist and psychiatrist at [facility]. O: Patient appeared to be engaged in group. Patient's motor activity was calm. Patient seemed to be in pleasant mood when discussing his discharge tomorrow. Patient seemed to be cognizant of the fact that he is discharging tomorrow. A: Patient's insight seems to have improved since his admittance to the hospital. Patient seems to be more aware of - and receptive to - outpatient resources. Patient had been withdrawn and isolative during his stay at the hospital, however, it appears that patient is more willing to socialize and engage with treatment team and other patients. P: SW will facilitate patient's discharge tomorrow. SW will arrange follow-up appointments for patient with his plasma center nurse, psychiatrist, therapist and case finishing machine adjuster. SW will answer any additional questions and concerns that may arise for patient.
[2017-08-09 16:09] VITALS: BP 109/60
--- NOTE | 2017-08-09 18:50 | NUR ---
[id number]: GAVE TYLENOL 650 MG PO DUE TO GENERALIZED PAIN 5/10 UPON PT REQUEST AND WILL CONTINUE TO MONITOR FOR EFFECTIVENESS OF MEDICATION
[2017-08-09 19:45] VITALS: BP 106/75
[2017-08-09] MEDS: GABAPENTIN 300 MG CAPSULE PO SCH (21:24)
[2017-08-09] MEDS: TEMAZEPAM 7.5 MG CAPSULE PO PRN (21:24)
[2017-08-09] MEDS: OLANZAPINE 5 MG TABLET PO SCH (21:24)
--- NOTE | 2017-08-10 00:27 | NUR ---
Patient up in the day room most of the evening denies any suicidal ideation , cont to feel sad and depressed tearful able to to express feeling cont to monitor. Addendum: 08/10/17 at 0033 by JOSE SALAZAR RN pt c/o insomnia prn restoril administrated.
[2017-08-10 08:00] VITALS: BP 111/58
--- NOTE | 2017-08-10 08:45 | NUR ---
DR. TONEY GAVE AN ORDER TO D/C HOLD AND D/C TO INDEPENDENT LIVING FACILITY AND TO FOLLOW UP WITH PSYCH AND MEDICAL DOCTORS.
[2017-08-10] MEDS: BUPROPION XL 150 MG TAB.ER.24 PO SCH (09:33)
[2017-08-10] MEDS: PANTOPRAZOLE 40 MG TABLET.DR PO SCH (09:34)
[2017-08-10] MEDS: ASCORBIC ACID 500 MG TABLET PO SCH (09:34)
--- NOTE | 2017-08-10 10:12 | NUR ---
RALF RIVER MADE AWARE OF THE DISCHARGE AND SAID OK FOR DISCHARGE AND SHE WROTE A PRESCRIPTIONS.
--- NOTE | 2017-08-10 11:39 | NUR ---
DISCHARGE NOTES PT WAS DISCHARGED FROM FACILITY IN STABLE CONDITION. ALL NEEDS WERE MET DURING SHIFT AND ORDERS CARRIED OUT ACCORDINGLY. RALF RIVER THE INSPECTOR MACHINE PARTS WAS MADE AWARE OF DISCHARGE AND APPROVED. AN ORDER WAS GIVEN BY DR. TONEY TO D/C HOLD AND D/C TO AN INDEPENDENT LIVING FACILITY. PRESCRIPTIONS WERE GIVEN TO PATIENT. PT DENIED ANY SUICIDAL AND ANY HOMICIDAL IDEATION PRIOR TO DISCHARGE. PT SIGNED ALL DISCHARGE PAPERWORK. COPIES WERE PLACED IN CHART. HE WAS ESCORTED TO A [facility] BY THE CHARGE NURSE IN STABLE CONDITION AND UNDER NO DISTRESS.
--- NOTE | 2017-08-10 11:50 | NUR ---
Discharge Note: Patient to be discharged to independent living facility located at [address] [place] [address], . Patients sister, Jesenia Arreaga [phone], is aware of discharge. The facility's medical instructor, Niya [phone], is also aware. Patient was transported by [employer], . Upon discharge, patient appeared to be calm and exhibited no signs of distress. Patient denied suicidal and homicidal ideation. SW faxed a home health order to [facility] [phone] / fax #[phone]. Patient will be seen by his refrigeration repair supervisor, Dr. Jagdish Tamayo [address] [address] [phone] on August 17 at 1:30pm. Patient has an appointment with his psychiatrist, Dr. Galvin [address] [place] [phone] on September 08 at 3:30pm. Patient was encouraged to discuss his substance abuse with his psychiatrist at that time. Patient was also provided referrals to [address] [address] and was encouraged to present at 9am for intake screening on August 16 2017. Additional referrals also included the [facility] [address] [place] [address] and [facility] : Substance and Alcohol Abuse Programs / Detox [address] [place] [address] . Patient was informed that [facility] welcomes walk-ins any time before 5pm. Patient was encouraged to present to a smoking cessation group at [address] [place] [address] 8, [place], [place] on August 17 at 7pm. Additional resources for smoking cessation were [employer] 800-LUNGUSA and [employer] [phone]
== END 2017-08-10 11:40 | DRG 885 ==
LOC: ER 13:29 → GPS 18:42
PROVIDERS: ADMIT Psychiatry & Neurology Psychiatry; ATTEND Psychiatry & Neurology Psychiatry
DX: F31.9 Bipolar disorder, unspecified (principal); R45.851 Suicidal ideations; F12.10 Cannabis abuse, uncomplicated; F29 Unspecified psychosis not due to a substance or known physiological condition; I25.2 Old myocardial infarction; K21.9 Gastro-esophageal reflux disease without esophagitis; Z79.899 Other long term (current) drug therapy; Z79.01 Long term (current) use of anticoagulants; Z87.19 Personal history of other diseases of the digestive system; E78.5 Hyperlipidemia, unspecified; F17.200 Nicotine dependence, unspecified, uncomplicated
CPT/HCPCS: 36415; 80048-TC; 80061-TC; 80076-TC; 80305; 81000-TC; 82565-TC; 85025-TC; G0480

== ENCOUNTER 2018-01-11 16:28 | Inpatient (IN) | payer MEDICARE, MEDICAID ==
[~2018-01-11] VITALS: Ht 182.9 cm; Wt 74.8 kg
[~2018-01-11 16:28] MED LIST changes: -BUPR100T5 PO; -MULT1TAB73 PO; -OMEG-166 PO; +OMEG-72 PO; -RIVA10TA PO
--- NOTE | 2018-01-11 16:28 | NUR ---
JOSE GUADALUPE FROM [facility] SERVICES FOR MEDICAL CLEARANCE PT IS ON 5150 DTS, PLAN IS TO RUN INTO TRAFFIC
[2018-01-11 16:58] LABS: BASOPHILS # (AUTO) 0.1 /CMM (0.0-0.2); BASOPHILS % (AUTO) 0.7 % (0.0-2.0); EOSINOPHILS % (AUTO) 1.4 % (0.0-6.0); HEMATOCRIT 46 % (39-51); HEMOGLOBIN 15.6 g/dL (13.5-17.5); LYMPHOCYTES # (AUTO) 2.4 /CMM (0.8-4.8); LYMPHOCYTES % (AUTO) 29.1 % (20.0-44.0); MEAN CORPUSCULAR HGB CONC 34 g/dl (31.0-36.0); MEAN CORPUSCULAR VOLUME 90 fL (80-96); MONOCYTES # (AUTO) 0.5 /CMM (0.1-1.30); MONOCYTES % (AUTO) 6.3 % (2.0-12.0); NEUTROPHILS % (AUTO) 62.5 % (43.0-81.0); PLATELET COUNT (AUTO) 259 /CMM (150-450); RDW COEFFICIENT OF VARIATION 12.1 (11.5-15.0); RED BLOOD CELL COUNT(AUTO) 5.16 MIL/uL (4.5-6.0); WHITE BLOOD COUNT (AUTO) 8.1 K/uL (4.3-11.0)
[2018-01-11] MEDS ORDERED: LURA40TA PO (16:59)
[2018-01-11] MEDS ORDERED: CITA10TA17 PO (16:59)
[2018-01-11 17:13] LABS: APPEARANCE,URINE Clear (CLEAR); BILIRUBIN,URINE Negative (NEGATIVE); BLOOD, URINE Negative Ery/uL (NEGATIVE); COLOR,URINE Yellow (YELLOW); KETONES,URINE Negative (NEGATIVE); LEUKOCYTE ESTERASE ,URINE Negative (NEGATIVE); NITRITE, URINE Negative (NEGATIVE); PROTEIN,URINE Negative (NEGATIVE); UGLUCOSE Negative (NEGATIVE); UROBILINOGEN,URINE 0.2 EU/dL (0.2)
[2018-01-11 17:16] LABS: CALCIUM, SERUM 8.6 mg/dL (8.5-10.1); CARBON DIOXIDE 30 mmol/L (21-32); CHLORIDE 105 mmol/L (98-107); GLUCOSE 89 mg/dL (74-106); POTASSIUM 3.7 mmol/L (3.5-5.1); SODIUM SERUM 138 mmol/L (136-145); UREA NITROGEN, BLOOD 12 mg/dL (7-18)
[2018-01-11 17:22] LABS: ALANINE AMINOTRANSFERASE 17 U/L (12-78); ALBUMIN 3.7 g/dL (3.4-5.0); ALCOHOL, BLOOD < 3 mg/dL (0-0); ALKALINE PHOSPHATASE 60 U/L (46-116); ASPARTATE AMINOTRANSFERASE 13 U/L (15-37); BILIRUBIN,DIRECT 0.1 mg/dL (0.0-0.2); BILIRUBIN,TOTAL 0.4 mg/dL (0.2-1.0); TOTAL PROTEIN, SERUM 6.9 g/dL (6.4-8.2)
--- NOTE | 2018-01-11 17:53 | NUR ---
GAVE REPORT TO [facility] GPS ROOM 211-2 DR DAWNA TAN ADMITTING SUICIDAL IDEATION
[2018-01-11] MEDS ORDERED: MAGNESIUM HYDROXIDE 30 ML UDC PO PRN (18:30)
[2018-01-11] MEDS ORDERED: ACETAMINOPHEN 325 MG TABLET PO PRN (18:30)
[2018-01-11] MEDS ORDERED: MAG HYDROX/AL HYDROX/SIMETH 30 ML UDC PO PRN (18:30)
[2018-01-11 19:30] VITALS: BP 136/67
--- NOTE | 2018-01-11 19:30 | NUR ---
GPS ADMISSION NOTE, RECEIVED PATIENT FROM [facility].. PATIENT ARRIVED ON THIS UNIT AT 1930 VIA STRETCHER WITH 2 EMT ESCORTS. PATIENT ADMITTED ON A 5150 HOLD FOR DTS. PER HOLD PATIENT HAS SI WITH A PLAN TO RUN INTO TRAFFIC. PATIENT COULD CONTRACT FOR SAFETY AT THAT TIME STATING, " I CAN'T PROMISE NOT TO KILL MYSELF TODAY ". PATIENT FAMILY MEMBERS WERE CONTACTED TO HELP PROVIDE SUPPORT BUT STILL PATIENT WOULD NOT CONTRACT FOR SAFETY. THE 5150 WAS REVIEWED AND THE DOCUMENTATION IN THE 5150 HOLD APPEARS TO REFLECT THE PRESENTATION OF THE PATIENT. UPON FACE TO FACE ASSESSMENT PATIENT IS CURRENTLY LYING IN BED AWAKE, HAS NO S/S OR COMPLAINTS OF PAIN. PATIENT IS DISPLAYING NO S/S OF APPARENT DISTRESS. PATIENT BREATHING IS UNLABORED WITH EQUAL RISE AND FALL OF THE CHEST. PATIENT IS ALERT AND ORIENTATED X 3 ON ROOM AIR. PATIENT ASSISTED WITH TURING AND REPOSITIONING Q2HR AND PRN FOR COMFORT AND CIRCULATION. PATIENT HAS NO NEEDS AT THIS TIME. PATIENT IS NOTED TO BEING WITHDRAWN, DEPRESSED, DISHEVELED, DISORGANIZED, COOPERATIVE, AND NEEDS REDIRECTION. PATIENT IS UNDER THE PSYCHIATRIC CARE OF DR. TONEY AND THE MEDICAL CARE OF DR DOMINICK HURTADO. PATIENT BELONGINGS WERE INVENTORIED AND CHECKED FOR CONTRABAND. ALL CONTRABAND REMOVED AND STORED IN PATIENT HALLWAY LOCKER. PATIENT ADVANCED DIRECTIVES PREFERENCE, IMMUNIZATIONS QUESTIONER, NECESSARY PAPERWORK, AND SKIN ASSESSMENT COMPLETED. PATIENT ORIENTATED TO ROOM, FLOOR, AND STAFF WITH ALL QUESTIONS ANSWERED. PATIENT EDUCATED ON THE USE OF THE CALL ARBOLEDA. PATIENT BED SIDE RAILS ARE UP X 2 FOR SAFETY. PATIENT BED IS LOCKED, LOW AND I WILL CONTINUE TO MONITOR THIS PATIENT Q 15 MIN WITH THE HELP OF STAFF TO MAINTAIN SAFETY.
[2018-01-11] MEDS: clonazePAM 0.5 MG TABLET PO PRN (19:37)
--- NOTE | 2018-01-11 19:37 | NUR ---
GPS RN NOTE, PATIENT HAS A COMPLAINT OF FEELING ANXIOUS AND IS REQUESTING KLONOPIN AT THIS TIME. PATIENT VITAL SIGNS ARE STABLE. GAVE KLONOPIN 0.5 MG PO Q6 HR PRN ORDERED. WILL REASSESS FOR ANXIETY AND I WILL CONTINUE TO MONITOR THIS PATIENT.
[2018-01-11 20:00] VITALS: BP 136/67
[2018-01-11] MEDS: GABAPENTIN 300 MG CAPSULE PO SCH (21:11)
[2018-01-11] MEDS: TEMAZEPAM 7.5 MG CAPSULE PO PRN (22:48)
[2018-01-12 08:00] VITALS: BP 105/60
[2018-01-12 08:11] LABS: BASOPHILS % (AUTO) 0.8 % (0.0-2.0); EOSINOPHILS % (AUTO) 2.4 % (0.0-6.0); HEMATOCRIT 45 % (39-51); HEMOGLOBIN 15.3 g/dL (13.5-17.5); LYMPHOCYTES # (AUTO) 2.3 /CMM (0.8-4.8); LYMPHOCYTES % (AUTO) 36.2 % (20.0-44.0); MEAN CORPUSCULAR HGB CONC 34 g/dl (31.0-36.0); MEAN CORPUSCULAR VOLUME 91 fL (80-96); MONOCYTES # (AUTO) 0.5 /CMM (0.1-1.30); MONOCYTES % (AUTO) 7.8 % (2.0-12.0); NEUTROPHILS # (AUTO) 3.4 /CMM (1.8-8.9); NEUTROPHILS % (AUTO) 52.8 % (43.0-81.0); PLATELET COUNT (AUTO) 254 /CMM (150-450); RDW COEFFICIENT OF VARIATION 12.7 (11.5-15.0); RED BLOOD CELL COUNT(AUTO) 5.01 MIL/uL (4.5-6.0); WHITE BLOOD COUNT (AUTO) 6.5 K/uL (4.3-11.0)
[2018-01-12 08:29] LABS: ALBUMIN 3.6 g/dL (3.4-5.0); BILIRUBIN,TOTAL 0.7 mg/dL (0.2-1.0); CALCIUM, SERUM 9.4 mg/dL (8.5-10.1); CREATININE 1.1 mg/dL (0.6-1.3); POTASSIUM 4.1 mmol/L (3.5-5.1); TOTAL PROTEIN, SERUM 6.7 g/dL (6.4-8.2)
[2018-01-12] MEDS: NICOTINE PATCH (14MG) 14 MG PATCH.TD24 TD SCH (09:00)
[2018-01-12] MEDS: clonazePAM 0.5 MG TABLET PO PRN ×2 (09:26→17:48)
--- NOTE | 2018-01-12 10:12 | NUR ---
WOUND CARE CONSULT: PT PRESENTS WITH SOME FLAT RED SPOTS ON ARMS AND TINY SPOTS ON BACK. PT REPORTS ITCHING ON HIS ARMS. DEFER TO MD FOR RASH. PT IS AMBULATORY AND CONTINENT. WILL SEE PRN. Addendum: 01/12/18 at 1013 by URSULA ZIEGLER WNDNU Amended: Links added.
--- NOTE | 2018-01-12 12:15 | NUR ---
DR. TAN CAME AND EXAMINED PT. REGARDING THE RASHES.
--- NOTE | 2018-01-12 15:59 | NUR ---
SW attempted to contact pts sister Jesenia [phone] for discharge purposes pts sister phone was "busy."
--- NOTE | 2018-01-12 15:59 | NUR ---
INITIAL DISCHARGE PLAN: Pt does not want to continue living at [facility] [address] [facility] [address]. Pt needs placement. SW will help form a safe and proper discharge in collaboration with .
[2018-01-12 16:00] VITALS: BP 137/79
--- NOTE | 2018-01-12 16:37 | NUR ---
CALLED DR. PATIÑO TO CLARIFY THE GABAPENTIN ORDER AND SAID TO CANCELL HIS ORDER.
[2018-01-12] MEDS ORDERED: GABAPENTIN 400 MG CAPSULE PO SCH (17:00)
[2018-01-12 20:00] VITALS: BP 103/56
[2018-01-12] MEDS: OLANZAPINE 10 MG TABLET PO SCH (22:01)
[2018-01-12] MEDS: GABAPENTIN 300 MG CAPSULE PO SCH (22:01)
[2018-01-12] MEDS: TEMAZEPAM 7.5 MG CAPSULE PO PRN (22:08)
[2018-01-13 08:07] VITALS: BP 96/65
[2018-01-13] MEDS: NICOTINE PATCH (14MG) 14 MG PATCH.TD24 TD SCH (09:00)
[2018-01-13] MEDS: CITALOPRAM HYDROBROMIDE 20 MG TABLET PO SCH (09:13)
[2018-01-13] MEDS: clonazePAM 0.5 MG TABLET PO PRN (13:50)
--- NOTE | 2018-01-13 14:05 | NUR ---
GPS/RN-NOTES PER CHARGE NURSE PATIENT REQUESTING KLONOPIN FOR ANXIETY. CHARGE NURSE GAVE KLONOPIN 0.5MG ORDERED. WILL CONT. MONITORING FOR SAFETY AND BEHAVIOR.
[2018-01-13 15:42] VITALS: BP 96/54
[2018-01-13 20:00] VITALS: BP 113/68
[2018-01-13] MEDS: OLANZAPINE 10 MG TABLET PO SCH (21:09)
[2018-01-13] MEDS: GABAPENTIN 300 MG CAPSULE PO SCH (21:09)
[2018-01-13] MEDS: TEMAZEPAM 7.5 MG CAPSULE PO PRN (21:10)
[2018-01-14 08:00] VITALS: BP 102/54
[2018-01-14] MEDS: CITALOPRAM HYDROBROMIDE 20 MG TABLET PO SCH (08:47)
[2018-01-14] MEDS: NICOTINE PATCH (14MG) 14 MG PATCH.TD24 TD SCH (08:49)
[2018-01-14] MEDS: clonazePAM 0.5 MG TABLET PO PRN (12:42)
--- NOTE | 2018-01-14 12:42 | NUR ---
[id number]: GAVE KLONOPIN 0.5 MG PO DUE TO SEVERE ANXIETY UPON PT REQUEST AND WILL CONTINUE TO MONITOR FOR EFFECTIVENESS OF MEDICATION.
[2018-01-14 16:00] VITALS: BP 114/68
[2018-01-14 21:46] VITALS: BP 104/58
[2018-01-14] MEDS: GABAPENTIN 300 MG CAPSULE PO SCH (21:46)
[2018-01-14] MEDS: OLANZAPINE 10 MG TABLET PO SCH (21:46)
[2018-01-14] MEDS: TEMAZEPAM 7.5 MG CAPSULE PO PRN (22:19)
[2018-01-15 08:10] VITALS: BP 108/59
[2018-01-15] MEDS: NICOTINE PATCH (14MG) 14 MG PATCH.TD24 TD SCH (09:00)
[2018-01-15] MEDS: CITALOPRAM HYDROBROMIDE 20 MG TABLET PO SCH (09:02)
[2018-01-15 16:10] VITALS: BP 111/59
[2018-01-15 19:45] VITALS: BP 118/68
[2018-01-15] MEDS: OLANZAPINE 10 MG TABLET PO SCH (21:10)
[2018-01-15] MEDS: GABAPENTIN 300 MG CAPSULE PO SCH (21:10)
[2018-01-15] MEDS: TEMAZEPAM 7.5 MG CAPSULE PO PRN (22:19)
[2018-01-16 08:00] VITALS: BP 106/67
[2018-01-16] MEDS: CITALOPRAM HYDROBROMIDE 20 MG TABLET PO SCH (08:47)
[2018-01-16] MEDS: NICOTINE PATCH (14MG) 14 MG PATCH.TD24 TD SCH (08:47)
[2018-01-16] MEDS: clonazePAM 0.5 MG TABLET PO PRN ×2 (14:14→21:20)
[2018-01-16 16:00] VITALS: BP 109/58
[2018-01-16 20:33] VITALS: BP 157/52
[2018-01-16] MEDS: OLANZAPINE 10 MG TABLET PO SCH (21:17)
[2018-01-16] MEDS: GABAPENTIN 300 MG CAPSULE PO SCH (21:19)
--- NOTE | 2018-01-16 21:21 | NUR ---
CLONAZEPAM 0.5 MG 1 PO GIVEN FOR ANXIETY.
[2018-01-16] MEDS: TEMAZEPAM 7.5 MG CAPSULE PO PRN (22:00)
[2018-01-17 08:00] VITALS: BP 106/59
--- NOTE | 2018-01-17 08:42 | NUR ---
SW was contacted by silvestre Moran therapist from [facility] Address: [address] [place] [address] . Luisa informed SW that pt is currently homeless and needs placement. She also informed SW that once pt is ready for discharge she would assist SW in coordinating follow up appointment with psychiatrist/therapist.
[2018-01-17] MEDS: CITALOPRAM HYDROBROMIDE 20 MG TABLET PO SCH (08:55)
[2018-01-17] MEDS: NICOTINE PATCH (14MG) 14 MG PATCH.TD24 TD SCH ×2 (08:55→08:56)
[2018-01-17] MEDS: clonazePAM 0.5 MG TABLET PO PRN ×2 (08:55→17:05)
--- NOTE | 2018-01-17 09:10 | NUR ---
BROCK faxed referral to [facility] patient placement coordinator from [facility] Address: [address] [facility], [place] [address] fax: [phone].
--- NOTE | 2018-01-17 12:40 | NUR ---
BROCK spoke with pts sister Jesenia and pts brother in law Gal [phone] who informed SW that her and are pts DPOA. SW asked pts sister and pts brother in law to fax or email DPOA forms to put in pts chart. Pts sister/brother in law agree to SNF placement.
[2018-01-17 16:00] VITALS: BP 119/66
[2018-01-17] MEDS: DOCUSATE SODIUM 100 MG CAPSULE PO SCH (17:05)
--- NOTE | 2018-01-17 19:26 | NUR ---
GPS RN NOTE, RECEIVED PATIENT AWAKE AND IN BED, NO S/S OR COMPLAINTS OF PAIN AT THIS TIME. PATIENT DISPLAYING NO S/S OF APPARENT DISTRESS AT THIS TIME. PATIENT BREATHING IS UNLABORED WITH EQUAL RISE AND FALL OF THE CHEST. PATIENT ALERT AND ORIENTED X 3 WITH A SPO2 95%. PATIENT IS MED COMPLIANT, DISORGANIZED, UNKEMPT, ISOLATIVE, COOPERATIVE, GUARDED, NEEDS REORIENTATION. PATIENT DENIES SUICIDE IDEATIONS AND HOMICIDAL IDEATIONS AT THIS TIME. PATIENT ASSISTED WITH TURNING AND REPOSITIONING Q2HR AND PRN FOR COMFORT AND CIRCULATION. PATIENT HAS NO NEEDS AT THIS TIME. PATIENT EDUCATED ON THE USE OF THE CALL ARBOLEDA. PATIENT BED SIDE RAILS UP X2 FOR SAFETY, BED IS LOCKED AND LOW WILL CONTINUE TO MONITOR AND MAINTAIN AND MAINTAIN SAFETY.
[2018-01-17 19:54] VITALS: BP 110/58
[2018-01-17] MEDS: GABAPENTIN 300 MG CAPSULE PO SCH (21:11)
[2018-01-17] MEDS: OLANZAPINE 10 MG TABLET PO SCH (21:11)
[2018-01-17] MEDS: TEMAZEPAM 7.5 MG CAPSULE PO PRN (22:36)
--- NOTE | 2018-01-17 22:36 | NUR ---
GPS RN NOTE, PATIENT HAS A COMPLAINT OF NOT BEING ABLE TO SLEEP AND IS REQUESTING RESTORIL AT THIS TIME. PATIENT VITAL SIGNS ARE STABLE. GAVE RESTORIL 7.5 MG PO HS ORDERED. WILL REASSESS FOR INSOMNIA AND I WILL CONTINUE TO MONITOR THIS PATIENT.
[2018-01-18] MEDS: clonazePAM 0.5 MG TABLET PO PRN ×2 (04:22→10:42)
[2018-01-18 07:55] VITALS: BP 108/60
[2018-01-18] MEDS: DOCUSATE SODIUM 100 MG CAPSULE PO SCH ×2 (08:09→16:15)
[2018-01-18] MEDS: CITALOPRAM HYDROBROMIDE 20 MG TABLET PO SCH (08:09)
[2018-01-18] MEDS: NICOTINE PATCH (14MG) 14 MG PATCH.TD24 TD SCH (08:09)
--- NOTE | 2018-01-18 08:11 | NUR ---
SW received fax and email of DPOA forms from pts brother in law Ellis [phone]. SW will [address] in pts chart.
--- NOTE | 2018-01-18 08:12 | NUR ---
SW provided pt with [facility] referral for assistance with housing. [facility] Address: [address] [place] [address], [place] [address]
[2018-01-18 16:09] VITALS: BP 117/65
--- NOTE | 2018-01-18 19:30 | NUR ---
GPS RN NOTE: RECEIVED PATIENT AWAKE AND IN BED, NO S/S OR COMPLAINTS OF PAIN AT THIS TIME. PATIENT DISPLAYING NO S/S OF APPARENT DISTRESS AT THIS TIME. PATIENT BREATHING IS UNLABORED WITH EQUAL RISE AND FALL OF THE CHEST. PATIENT ALERT AND ORIENTED X 3. PATIENT IS MED COMPLIANT, PASSIVE AND GUARDED. PATIENT DENIES SUICIDE IDEATIONS AND HOMICIDAL IDEATIONS AT THIS TIME. PATIENT HAS NO NEEDS AT THIS TIME. PATIENT REEDUCATED ON THE USE OF THE CALL ARBOLEDA. PATIENT BED SIDE RAILS UP X2 FOR SAFETY, BED IS LOCKED AND LOW WILL CONTINUE TO MONITOR AND MAINTAIN AND MAINTAIN SAFETY.
[2018-01-18 20:00] VITALS: BP 103/61
[2018-01-18] MEDS: GABAPENTIN 300 MG CAPSULE PO SCH (21:15)
[2018-01-18] MEDS: OLANZAPINE 10 MG TABLET PO SCH (21:15)
[2018-01-18] MEDS: TEMAZEPAM 7.5 MG CAPSULE PO PRN (21:18)
--- NOTE | 2018-01-18 22:00 | NUR ---
GPS RN NOTE: PATIENT RECEIVED PRN FOR INSOMNIA AND NOW SLEEPING WITHOUT SIGNS OF DISTRESS. BED RAILS UP X 2 AND CALL ARBOLEAD WITHIN REACH.
[2018-01-19] MEDS: clonazePAM 0.5 MG TABLET PO PRN ×2 (05:09→12:18)
[2018-01-19 08:00] VITALS: BP 110/60
[2018-01-19] MEDS: CITALOPRAM HYDROBROMIDE 20 MG TABLET PO SCH (08:24)
[2018-01-19] MEDS: DOCUSATE SODIUM 100 MG CAPSULE PO SCH ×2 (08:24→16:20)
[2018-01-19] MEDS: NICOTINE PATCH (14MG) 14 MG PATCH.TD24 TD SCH (08:24)
--- NOTE | 2018-01-19 10:12 | NUR ---
SW contacted pts sister Jesenia and pts brother in law Gal [phone] to inform them pt will be discharging Monday January 22, 2018 at 11:00am to [facility].
[2018-01-19 16:15] VITALS: BP 107/68
[2018-01-19 19:57] VITALS: BP 112/62
[2018-01-19] MEDS: GABAPENTIN 300 MG CAPSULE PO SCH (21:08)
[2018-01-19] MEDS: OLANZAPINE 10 MG TABLET PO SCH (21:09)
[2018-01-19] MEDS: TEMAZEPAM 7.5 MG CAPSULE PO PRN (22:13)
[2018-01-20] MEDS: clonazePAM 0.5 MG TABLET PO PRN ×2 (04:16→12:31)
[2018-01-20 08:00] VITALS: BP 116/62
[2018-01-20] MEDS: NICOTINE PATCH (14MG) 14 MG PATCH.TD24 TD SCH ×2 (08:39→09:00)
[2018-01-20] MEDS: CITALOPRAM HYDROBROMIDE 20 MG TABLET PO SCH (08:39)
[2018-01-20] MEDS: DOCUSATE SODIUM 100 MG CAPSULE PO SCH ×2 (08:39→17:00)
--- NOTE | 2018-01-20 08:41 | NUR ---
GPS/RN-NOTES PATIENT REFUSED NICOTINE PATCH. STATED" I NEVER TAKE NICOTINE PATCH, I'M OK WITHOUT IT". OFFERED X3.
--- NOTE | 2018-01-20 12:31 | NUR ---
GPS/RN-NOTES PATIENT REQUESTING KLONOPIN FOR HIS ANXIETY. KLONOPIN 0.5MG P.O GIVEN PRN ORDER. WILL CONT. MONITORING FOR SAFETY.
--- NOTE | 2018-01-20 13:30 | NUR ---
GPS/RN-NOTES PATIENT AWAKE,ALERT LAYING IN HIS BED CALM,NO ACUTE DISTRESS NOTED.
[2018-01-20 16:00] VITALS: BP 109/67
[2018-01-20 20:00] VITALS: BP_SYST 112; BP_SYST 118; BP_DIAS 62
[2018-01-20] MEDS: OLANZAPINE 10 MG TABLET PO SCH (21:16)
[2018-01-20] MEDS: GABAPENTIN 300 MG CAPSULE PO SCH (21:16)
[2018-01-20] MEDS: TEMAZEPAM 7.5 MG CAPSULE PO PRN (22:15)
[2018-01-21] MEDS: clonazePAM 0.5 MG TABLET PO PRN ×2 (02:56→11:29)
[2018-01-21 07:52] VITALS: BP 102/61
[2018-01-21] MEDS: CITALOPRAM HYDROBROMIDE 20 MG TABLET PO SCH (08:45)
[2018-01-21] MEDS: DOCUSATE SODIUM 100 MG CAPSULE PO SCH ×2 (08:45→16:33)
[2018-01-21] MEDS: NICOTINE PATCH (14MG) 14 MG PATCH.TD24 TD SCH (09:00)
--- NOTE | 2018-01-21 11:35 | NUR ---
GPS/RN-NOTES PATIENT ASKING FOR KLONOPIN FOR HIS ANXIETY. KLONOPIN 0.5MG P.O GIVEN PRN ORDER. WILL CONT. MONITORING FOR SAFETY.
[2018-01-21 15:50] VITALS: BP 112/64
[2018-01-21 19:43] VITALS: BP 120/60
[2018-01-21] MEDS: GABAPENTIN 300 MG CAPSULE PO SCH (21:36)
[2018-01-21] MEDS: OLANZAPINE 10 MG TABLET PO SCH (21:36)
[2018-01-21] MEDS: TEMAZEPAM 7.5 MG CAPSULE PO PRN (23:02)
[2018-01-22 07:45] VITALS: BP 107/60
[2018-01-22] MEDS: DOCUSATE SODIUM 100 MG CAPSULE PO SCH (07:58)
[2018-01-22] MEDS: NICOTINE PATCH (14MG) 14 MG PATCH.TD24 TD SCH (07:59)
[2018-01-22] MEDS: CITALOPRAM HYDROBROMIDE 20 MG TABLET PO SCH (07:59)
--- NOTE | 2018-01-22 12:00 | NUR ---
GPS/RN PATIENT CLEAR[facility]GE TO [facility], BY DR PATIÑO AND OMEGA KNUTSON. MEDICATIONS RECONCILED, EXIT CARE, AFTER CARE PLAN AND MEDICATIONS EXPLAINED TO PATIENT, VERBALIZED UNDERSTANDING. VALUABLES INCLUDING ($56.00) AND BELONGINGS RETURNED TO PATIENT. PATIENT SIGNED BELONGINGS LIST COSIGNED BY CENTER MEDICAL DIRECTOR AND RN. . PATIENT DENIES SI/HI/AH UPON DISCHARGE, PSYCHIATRIC TREATMENT PLANS MET, REPORT CALLED TO SINTIA AT FACILITY. SKIN PICTURES TAKEN BY SUPERVISOR PLASTERING. PATIENT LEFT UNIT, CALM, COOPERATIVE, NO DISTRESS WITH AMBULANCE TRANSPORT AT SIDE.
--- NOTE | 2018-01-22 13:56 | NUR ---
DISCHARGE NOTE: Pt was discharged at 11:30am via [facility] ambulance trip #[id number] to [facility] [address] [place] [address] [address] [id number] . Pts sister Shea [phone] has been notified and agrees to discharge plan. Pts mood was euthymic and affect was flat. Pt denied suicidal/homicidal ideations and denied visual/auditory hallucinations. Patient was provided referrals to address his substance use. Patient was referred to the [address] [address] / and was encouraged to present at 9am on Tuesday, January 23, 2018. Additional resources included [facility] [address] [place] [address] and [facility] [address] [place] [address] . Pt will be under the medical care of Central Sterile Technician: Dr Rock Address: [address] [place] [address] and Psychiatrist: Dr. Ocasio [address] [address] [phone]. The multidisciplinary exitcare form was done, printed, signed, and given to the patient.
--- NOTE | 2018-02-12 12:47 | NUR ---
15 DAY POST DISCHARGE SUBSTANCE ABUSE FOLLOW-UP: PT EXCLUDED DUE TO DISCHARGE TO SNF.
== END 2018-01-22 12:00 | DRG 885 ==
LOC: ER 16:29 → GPS 17:36
PROVIDERS: ADMIT Psychiatry & Neurology Psychiatry
DX: F31.5 Bipolar disorder, current episode depressed, severe, with psychotic features (principal); R45.851 Suicidal ideations; G62.9 Polyneuropathy, unspecified; F23 Brief psychotic disorder; E78.5 Hyperlipidemia, unspecified; Z73.6 Limitation of activities due to disability; F17.210 Nicotine dependence, cigarettes, uncomplicated; F41.9 Anxiety disorder, unspecified; F42.9 Obsessive-compulsive disorder, unspecified; K21.9 Gastro-esophageal reflux disease without esophagitis; Z86.73 Personal history of transient ischemic attack (TIA), and cerebral infarction without residual deficits; R21 Rash and other nonspecific skin eruption; F15.10 Other stimulant abuse, uncomplicated
CPT/HCPCS: 36415; 80048-TC; 80053-TC; 80061-TC; 80076-TC; 80305; 81000-TC; 85025-TC; 87081-TC; A4606; G0480; Z7610

== ENCOUNTER 2023-02-07 05:20 | Emergency (ER) | payer MEDICARE, OTHER ==
[~2023-02-07] VITALS: Ht 180.3 cm; Wt 65.8 kg
[~2023-02-07 05:20] MED LIST changes: -ASCO500T9 PO; -OMEG-72 PO; -OMEP20CA10 PO
--- NOTE | 2023-02-07 05:25 | NUR ---
[id number] FROM [facility]. PATIENT COMPLAINING OF BODY PAIN AND EYE PAIN. CLAIMED THAT HE WAS BEING PEPPER SPRAYED. TAKING ASPIRIN FOR PAIN
[2023-02-07 06:52] LABS: BASOPHILS # (AUTO) 0.1 K/uL (0.0-0.2); BASOPHILS % (AUTO) 0.7 % (0.0-2.0); EOSINOPHILS % (AUTO) 0.8 % (0.0-6.0); HEMATOCRIT 35 % (39-51); HEMOGLOBIN 11.4 g/dL (13.5-17.5); LYMPHOCYTES # (AUTO) 1.3 K/uL (0.8-4.8); MEAN CORPUSCULAR HGB CONC 33 g/dl (31.0-36.0); MEAN CORPUSCULAR VOLUME 90 fL (80-96); MONOCYTES % (AUTO) 9.3 % (2.0-12.0); NEUTROPHILS # (AUTO) 8.1 K/uL (1.8-8.9); NEUTROPHILS % (AUTO) 77.2 % (43.0-81.0); PLATELET COUNT (AUTO) 254 K/uL (150-450); RED BLOOD CELL COUNT(AUTO) 3.89 MIL/uL (4.5-6.0); WHITE BLOOD COUNT (AUTO) 10.5 K/uL (4.3-11.0)
[2023-02-07 07:11] LABS: ALANINE AMINOTRANSFERASE 45 U/L (12-78); ALBUMIN 2.8 g/dL (3.4-5.0); ALCOHOL, BLOOD < 3 mg/dL (0-10); ALKALINE PHOSPHATASE 82 U/L (46-116); ASPARTATE AMINOTRANSFERASE 25 U/L (15-37); BILIRUBIN,DIRECT 0.1 mg/dL (0.0-0.2); BILIRUBIN,TOTAL 0.3 mg/dL (0.2-1.0); CALCIUM, SERUM 8.4 mg/dL (8.5-10.1); CARBON DIOXIDE 25 mmol/L (21-32); CHLORIDE 105 mmol/L (98-107); CREATININE 0.8 mg/dL (0.6-1.3); GLUCOSE 121 mg/dL (74-106); POTASSIUM 3.8 mmol/L (3.5-5.1); SODIUM SERUM 139 mmol/L (136-145); UREA NITROGEN, BLOOD 16 mg/dL (7-18)
[2023-02-07 10:00] VITALS: BP 124/68; TEMP 98.3
--- NOTE | 2023-02-07 10:00 | NUR ---
Patient eloped from facility. ER MD notified.
== END 2023-02-07 10:00 | disposition left against medical advice (07) ==
LOC: ER 05:22
DX: F22 Delusional disorders (principal); J44.9 Chronic obstructive pulmonary disease, unspecified; K21.9 Gastro-esophageal reflux disease without esophagitis; F17.200 Nicotine dependence, unspecified, uncomplicated; Z79.899 Other long term (current) drug therapy
CPT/HCPCS: 36415; 80048-TC; 80076-TC; 85025-TC; G0480

== ENCOUNTER 2023-09-02 03:28 | Inpatient (IN) | payer MEDICARE, OTHER ==
[~2023-09-02] VITALS: Ht 185.4 cm; Wt 70.8 kg
[2023-09-02 04:09] LABS: WHITE BLOOD COUNT (AUTO) 8.5 K/uL (4.3-11.0)
[2023-09-02 04:09] LABS: APPEARANCE,URINE CLEAR (CLEAR); BILIRUBIN,URINE NEGATIVE (NEGATIVE); BLOOD, URINE NEGATIVE Ery/uL (NEGATIVE); COLOR,URINE YELLOW (YELLOW); KETONES,URINE NEGATIVE (NEGATIVE); LEUKOCYTE ESTERASE ,URINE 1+ (NEGATIVE); NITRITE, URINE NEGATIVE (NEGATIVE); PH,URINE 7.5 (5.0-8.0); PROTEIN,URINE TRACE mg/dl (NEGATIVE); UGLUCOSE NEGATIVE (NEGATIVE); UROBILINOGEN,URINE 0.2 EU/dL (0.2)
[2023-09-02 04:15] LABS: BASOPHILS # (AUTO) 0.1 K/uL (0.0-0.2); BASOPHILS % (AUTO) 0.8 % (0.0-2.0); EOSINOPHILS # (AUTO) 0.3 K/uL (0.0-0.7); EOSINOPHILS % (AUTO) 3.3 % (0.0-6.0); HEMATOCRIT 39 % (39-51); HEMOGLOBIN 13.2 g/dL (13.5-17.5); LYMPHOCYTES # (AUTO) 1.7 K/uL (0.8-4.8); LYMPHOCYTES % (AUTO) 20.2 % (20.0-44.0); MEAN CORPUSCULAR HEMOGLOBIN 30 PG (26.0-33.0); MEAN CORPUSCULAR HGB CONC 34 g/dl (31.0-36.0); MEAN CORPUSCULAR VOLUME 90 fL (80-96); MONOCYTES # (AUTO) 0.8 K/uL (0.1-1.30); MONOCYTES % (AUTO) 9.6 % (2.0-12.0); NEUTROPHILS # (AUTO) 5.6 K/uL (1.8-8.9); NEUTROPHILS % (AUTO) 66.1 % (43.0-81.0); PLATELET COUNT (AUTO) 255 K/uL (150-450); RED BLOOD CELL COUNT(AUTO) 4.37 MIL/uL (4.5-6.0); RED CELL DISTRIBUTION WIDTH 15.3 % (11.5-15.0)
[2023-09-02 04:49] LABS: CALCIUM, SERUM 8.9 mg/dL (8.5-10.1); CARBON DIOXIDE 28 mmol/L (21-32); CHLORIDE 104 mmol/L (98-107); CREATININE 0.9 mg/dL (0.6-1.3); GLUCOSE 96 mg/dL (74-106); POTASSIUM 3.8 mmol/L (3.5-5.1); SODIUM SERUM 138 mmol/L (136-145); UREA NITROGEN, BLOOD 21 mg/dL (7-18)
[2023-09-02 04:55] LABS: ALANINE AMINOTRANSFERASE 35 U/L (12-78); ALBUMIN 3.7 g/dL (3.4-5.0); ALCOHOL, BLOOD 3 mg/dL (0-10); ALKALINE PHOSPHATASE 85 U/L (46-116); ASPARTATE AMINOTRANSFERASE 25 U/L (15-37); BILIRUBIN,DIRECT 0.1 mg/dL (0.0-0.2); BILIRUBIN,TOTAL 0.6 mg/dL (0.2-1.0); SALICYLATE 3.1 mg/dL (2.8-20.0); TOTAL PROTEIN, SERUM 7.2 g/dL (6.4-8.2)
[2023-09-02 04:56] LABS: ACETAMINOPHEN <10 ug/ml (10-30)
[2023-09-02 04:56] LABS: AMPHETAMINE, URINE NEGATIVE (NEGATIVE); BARBITURATE, URINE NEGATIVE (NEGATIVE); BENZODIAZEPINE, URINE NEGATIVE (NEGATIVE); COCCAINE, URINE NEGATIVE (NEGATIVE); OPIATE, URINE NEGATIVE (NEGATIVE); PHENCYCLIDINE SCREEN,URINE NEGATIVE (NEGATIVE)
[2023-09-02 04:57] LABS: CANNABINOID, URINE POSITIVE (NEGATIVE)
[2023-09-02 05:56] LABS: RBC,URINE NONE SEEN /HPF (0-2)
[2023-09-02 05:57] LABS: ADD URINE CULTURE YES; BACTERIA,URINE 1+ /HPF (None Seen); MUCUS,URINE Few /LPF (None Seen); SQUAMOUS EPITHELIAL CELL,UR None Seen /HPF (None Seen)
[2023-09-02] MEDS ORDERED: HALOPERIDOL LACTATE INJ 5 MG/ML VIAL ONE (10:09)
[2023-09-02] MEDS ORDERED: diphenhydrAMINE HCL 50 MG/ML VIAL ONE (10:09)
[2023-09-02] MEDS ORDERED: diphenhydrAMINE HCL 50 MG/ML VIAL IM ONE (10:30)
[2023-09-02] MEDS ORDERED: HALOPERIDOL LACTATE INJ 5 MG/ML VIAL IM ONE (10:30)
[2023-09-02] MEDS ORDERED: BUSP10TA35 PO (14:28)
[2023-09-02] MEDS ORDERED: GABA600T12 PO (14:28)
[2023-09-02] MEDS ORDERED: TRAZ-182 PO (14:28)
[2023-09-02] MEDS ORDERED: SERT50TA PO (14:28)
[2023-09-02] MEDS ORDERED: LURA40TA PO (14:28)
[2023-09-02] MEDS ORDERED: MAGNESIUM HYDROXIDE 30 ML UDC PO PRN (17:00)
[2023-09-02] MEDS ORDERED: BLOOD SUGAR DIAGNOSTIC 1 EACH STRIP IN ONE (17:00)
[2023-09-02] MEDS ORDERED: MAG HYDROX/AL HYDROX/SIMETH 30 ML UDC PO PRN (17:00)
[2023-09-02 20:00] VITALS: BP 131/84; TEMP 98.1; O2SAT 97
[2023-09-03 07:40] LABS: CHOLESTEROL 164 mg/dL (<200); HDL CHOLESTEROL 57 mg/dL (40-60); LDL 94 mg/dL (0-99); TRIGLYCERIDES 67 mg/dL (30-150)
[2023-09-03 08:00] VITALS: BP 128/72; TEMP 98.6; O2SAT 100
[2023-09-03 08:01] LABS: ALBUMIN 2.7 g/dL (3.4-5.0); BILIRUBIN,TOTAL 0.5 mg/dL (0.2-1.0); CALCIUM, SERUM 8.6 mg/dL (8.5-10.1); CREATININE 0.8 mg/dL (0.6-1.3); POTASSIUM 4.1 mmol/L (3.5-5.1); TOTAL PROTEIN, SERUM 5.7 g/dL (6.4-8.2)
[2023-09-03] MEDS: NICOTINE PATCH (21MG) 21 MG PATCH.TD24 TD SCH ×2 (09:00→09:03)
[2023-09-03] MEDS: LORAZEPAM 0.5 MG TABLET PO PRN (14:27)
[2023-09-03 16:00] VITALS: BP 122/72; TEMP 98.6; O2SAT 98
[2023-09-03 17:57] LABS: CREATININE 0.9 mg/dL (0.6-1.3)
[2023-09-03 20:53] VITALS: BP 126/72; TEMP 98.4; O2SAT 98
[2023-09-03] MEDS: TEMAZEPAM 7.5 MG CAPSULE PO PRN (21:32)
[2023-09-03] MEDS ORDERED: OLANZAPINE 5 MG TABLET PO SCH (22:00)
[2023-09-04] MEDS: LORAZEPAM 0.5 MG TABLET PO PRN ×2 (02:58→22:28)
[2023-09-04] MEDS: ACETAMINOPHEN 325 MG TABLET PO PRN (05:17)
[2023-09-04 08:00] VITALS: BP 116/68; TEMP 98.7; O2SAT 100
[2023-09-04] MEDS: OLANZAPINE 2.5 MG TABLET PO PRN (08:24)
[2023-09-04] MEDS: NICOTINE PATCH (21MG) 21 MG PATCH.TD24 TD SCH (08:24)
[2023-09-04] MEDS ORDERED: LORAZEPAM INJ 2 MG/ML VIAL IM ONE (11:00)
[2023-09-04] MEDS: OLANZAPINE 5 MG TABLET PO SCH ×3 (13:33→21:18)
[2023-09-04 16:00] VITALS: BP 118/64; TEMP 98.6; O2SAT 100
[2023-09-04 20:41] VITALS: BP 106/53; TEMP 98.4; O2SAT 97
[2023-09-04] MEDS: TEMAZEPAM 7.5 MG CAPSULE PO PRN (21:21)
[2023-09-05 08:00] VITALS: BP 117/68; TEMP 97.9; O2SAT 98
[2023-09-05] MEDS: OLANZAPINE 2.5 MG TABLET PO PRN (08:24)
[2023-09-05] MEDS: NICOTINE PATCH (21MG) 21 MG PATCH.TD24 TD SCH ×3 (08:25→16:33)
[2023-09-05] MEDS: OLANZAPINE 5 MG TABLET PO SCH ×3 (08:37→21:09)
[2023-09-05] MEDS ORDERED: OLANZAPINE 10 MG VIAL IM ONE (11:00)
[2023-09-05] MEDS ORDERED: LORAZEPAM INJ 2 MG/ML VIAL IM ONE (11:00)
[2023-09-05] MEDS ORDERED: LIDOCAINE 5% (PATCH) 1 EA PATCH TP PRN (11:00)
[2023-09-05 16:00] VITALS: BP 123/93; TEMP 98.6; O2SAT 100
[2023-09-05] MEDS: OXCARBAZEPINE 150 MG TABLET PO SCH (16:32)
[2023-09-05 19:59] VITALS: BP 126/64; TEMP 98.1; O2SAT 97
[2023-09-05] MEDS: TEMAZEPAM 7.5 MG CAPSULE PO PRN (21:09)
[2023-09-06 08:00] VITALS: BP 126/90; TEMP 98.6; O2SAT 99
[2023-09-06] MEDS: OLANZAPINE 5 MG TABLET PO SCH ×3 (08:05→20:58)
[2023-09-06] MEDS: NICOTINE PATCH (21MG) 21 MG PATCH.TD24 TD SCH (08:05)
[2023-09-06] MEDS: OXCARBAZEPINE 150 MG TABLET PO SCH ×3 (08:05→16:51)
[2023-09-06] MEDS: LORAZEPAM 0.5 MG TABLET PO PRN (13:20)
[2023-09-06 16:00] VITALS: BP 130/74; TEMP 98.7; O2SAT 99
[2023-09-06 20:39] VITALS: BP 120/53; TEMP 98; O2SAT 97
[2023-09-06] MEDS: TEMAZEPAM 7.5 MG CAPSULE PO PRN (21:27)
[2023-09-07 08:00] VITALS: BP 109/65; TEMP 97.8; O2SAT 97
[2023-09-07] MEDS: NICOTINE PATCH (21MG) 21 MG PATCH.TD24 TD SCH (08:15)
[2023-09-07] MEDS: OLANZAPINE 5 MG TABLET PO SCH ×4 (08:15→21:18)
[2023-09-07] MEDS: OXCARBAZEPINE 150 MG TABLET PO SCH ×3 (08:15→17:00)
[2023-09-07 16:00] VITALS: BP 134/80; TEMP 98.2; O2SAT 96
[2023-09-07] MEDS: BENZTROPINE MESYLATE (1 MG) 1 MG TABLET PO SCH ×2 (16:56→21:18)
[2023-09-07 19:58] VITALS: BP 137/64; TEMP 98.3; O2SAT 97
[2023-09-07] MEDS: TEMAZEPAM 7.5 MG CAPSULE PO PRN (22:07)
[2023-09-08] MEDS: LORAZEPAM 0.5 MG TABLET PO PRN ×3 (01:04→23:35)
[2023-09-08 08:00] VITALS: BP 124/77; TEMP 98; O2SAT 100
[2023-09-08] MEDS: OXCARBAZEPINE 150 MG TABLET PO SCH ×3 (08:00→16:35)
[2023-09-08] MEDS: OLANZAPINE 5 MG TABLET PO SCH ×4 (08:51→21:09)
[2023-09-08] MEDS: BENZTROPINE MESYLATE (1 MG) 1 MG TABLET PO SCH ×2 (08:51→21:09)
[2023-09-08] MEDS: NICOTINE PATCH (21MG) 21 MG PATCH.TD24 TD SCH (08:55)
[2023-09-08] MEDS ORDERED: OLANZAPINE 10 MG VIAL IM ONE (14:30)
[2023-09-08] MEDS ORDERED: LORAZEPAM INJ 2 MG/ML VIAL IM ONE (14:30)
[2023-09-08 16:00] VITALS: BP 127/90; TEMP 97.6; O2SAT 98
[2023-09-08 20:43] VITALS: BP 133/59; TEMP 97.6; O2SAT 98
[2023-09-08] MEDS: TEMAZEPAM 7.5 MG CAPSULE PO PRN (22:41)
[2023-09-09] MEDS: ACETAMINOPHEN 325 MG TABLET PO PRN (06:39)
[2023-09-09 08:00] VITALS: BP 113/67; TEMP 97.6; O2SAT 97
[2023-09-09] MEDS: OXCARBAZEPINE 150 MG TABLET PO SCH ×3 (08:00→17:00)
[2023-09-09] MEDS: OLANZAPINE 5 MG TABLET PO SCH ×4 (08:22→20:55)
[2023-09-09] MEDS: BENZTROPINE MESYLATE (1 MG) 1 MG TABLET PO SCH ×2 (08:22→20:55)
[2023-09-09] MEDS: NICOTINE PATCH (21MG) 21 MG PATCH.TD24 TD SCH (08:24)
[2023-09-09] MEDS ORDERED: OLANZAPINE 10 MG VIAL IM ONE (14:30)
[2023-09-09 16:00] VITALS: BP 130/73; TEMP 97.7; O2SAT 99
[2023-09-09 20:00] VITALS: BP 121/72; TEMP 97.8; O2SAT 99
[2023-09-09] MEDS: TEMAZEPAM 15 MG CAPSULE PO PRN (22:34)
[2023-09-10] MEDS ORDERED: GUAIFENESIN/D-METHORPHAN HB 5 ML UDC PO PRN
[2023-09-10] MEDS: ACETAMINOPHEN 325 MG TABLET PO PRN ×3 (00:01→23:52)
[2023-09-10 08:00] VITALS: BP 99/70; TEMP 97.8; O2SAT 98
[2023-09-10] MEDS: NICOTINE PATCH (21MG) 21 MG PATCH.TD24 TD SCH (09:00)
[2023-09-10] MEDS: OXCARBAZEPINE 150 MG TABLET PO SCH ×3 (09:09→16:58)
[2023-09-10] MEDS: OLANZAPINE 5 MG TABLET PO SCH ×4 (09:09→20:16)
[2023-09-10] MEDS: BENZTROPINE MESYLATE (1 MG) 1 MG TABLET PO SCH ×2 (09:10→20:16)
[2023-09-10 16:00] VITALS: BP 111/81; TEMP 97.8; O2SAT 100
[2023-09-10 20:57] VITALS: BP 106/56; TEMP 98.2; O2SAT 96
[2023-09-11] MEDS: ACETAMINOPHEN 325 MG TABLET PO PRN (06:05)
[2023-09-11 08:00] VITALS: BP 106/64; TEMP 97.6; O2SAT 98
[2023-09-11] MEDS: NICOTINE PATCH (21MG) 21 MG PATCH.TD24 TD SCH (09:00)
[2023-09-11] MEDS: OLANZAPINE 5 MG TABLET PO SCH ×4 (09:04→20:17)
[2023-09-11] MEDS: OXCARBAZEPINE 150 MG TABLET PO SCH ×3 (09:04→16:28)
[2023-09-11] MEDS: BENZTROPINE MESYLATE (1 MG) 1 MG TABLET PO SCH ×2 (09:04→20:17)
[2023-09-11 16:00] VITALS: BP 123/63; TEMP 98.8; O2SAT 98
[2023-09-11 20:26] VITALS: BP 105/50; TEMP 97.7; O2SAT 97
[2023-09-11] MEDS: TEMAZEPAM 15 MG CAPSULE PO PRN (21:26)
[2023-09-12 08:00] VITALS: BP 115/71; TEMP 97.8; O2SAT 97
[2023-09-12] MEDS: OXCARBAZEPINE 150 MG TABLET PO SCH ×2 (08:21→12:55)
[2023-09-12] MEDS: OLANZAPINE 5 MG TABLET PO SCH ×2 (08:21→12:55)
[2023-09-12] MEDS: NICOTINE PATCH (21MG) 21 MG PATCH.TD24 TD SCH (08:21)
[2023-09-12] MEDS: BENZTROPINE MESYLATE (1 MG) 1 MG TABLET PO SCH (08:21)
== END 2023-09-12 14:00 | DRG 885 ==
LOC: ER 03:40 → GPS 14:38
PROVIDERS: ADMIT Psychiatry & Neurology Psychosomatic Medicine; ATTEND Nurse Practitioner Family
DX: F31.9 Bipolar disorder, unspecified (principal); Z59.00 Homelessness unspecified; F12.10 Cannabis abuse, uncomplicated; D64.9 Anemia, unspecified; J44.9 Chronic obstructive pulmonary disease, unspecified; Z20.822 Contact with and (suspected) exposure to COVID-19; E78.5 Hyperlipidemia, unspecified; F42.9 Obsessive-compulsive disorder, unspecified; Z73.6 Limitation of activities due to disability; F29 Unspecified psychosis not due to a substance or known physiological condition; M25.461 Effusion, right knee; F25.0 Schizoaffective disorder, bipolar type; Z87.891 Personal history of nicotine dependence
CPT/HCPCS: 36415; 73564-TC; 80048-TC; 80053-TC; 80061-TC; 80076-TC; 81001; 82565-TC; 82962-TC; 85025-TC; 87086-TC; G0480; J1200; J1630; J2060; J3490